=== PATIENT | male | born 1950 | race Caucasian/White ===

== ENCOUNTER 2017-02-02 11:47 | Outpatient (CLI) ==
[2016-02-04 08:40] VITALS: BMI 30.4
[2017-02-02 12:55] LABS: BASOPHILS % (AUTO) 0.6 % (0.0-3.0); EOSINOPHILS # (AUTO) 0.2 K/ul (0.0-0.7); EOSINOPHILS % (AUTO) 2.8 % (0.0-7.0); HEMATOCRIT 48.8 % (42.0-52.0); HEMOGLOBIN 16.5 g/dl (14.0-18.0); IMMATURE GRANULOCYTE % (AUTO) 0.4 % (0.0-5.0); LYMPHOCYTES # (AUTO) 2.1 K/uL (0.60-3.4); LYMPHOCYTES % (AUTO) 31.7 (10.0-50.0); MEAN CORPUSCULAR HEMOGLOBIN 28.9 pg (27.0-31.0); MEAN CORPUSCULAR HGB CONC 33.8 (31.8-35.4); MEAN CORPUSCULAR VOLUME 85.5 fl (80.0-94.0); MONOCYTES # (AUTO) 0.7 K/uL (0.4-2.0); MONOCYTES % (AUTO) 10.4 (0-10); NEUTROPHILS # (AUTO) 3.6 K/ul (2.0-6.9); NEUTROPHILS % (AUTO) 54.1; PLATELET COUNT 184 10^3/uL (140-440); RED BLOOD COUNT 5.71 10^6/ul (4.70-6.10); WHITE BLOOD COUNT 6.71 K/ul (4.2-10.2)
[2017-02-02 13:27] LABS: ALBUMIN 3.6 g/dL (3.4-5.0); ALBUMIN/GLOBULIN RATIO 0.9; ANION GAP 14.3; BILIRUBIN,TOTAL 0.38 mg/dL (0.00-1.20); BUN/CREATININE RATIO 14.89; CHOL/HDL RATIO 4.6 (4.5-6.4); CREATININE 0.94 mg/dL (0.60-1.10); POTASSIUM 4.3 mmol/L (3.5-5.1); TOTAL PROTEIN 7.6 g/dL (5.8-8.1)
== END 2017-02-02 11:48 | disposition home or self-care (01) ==
LOC: LAB 11:47
PROVIDERS: ATTEND Nurse Practitioner Family
DX: E11.9 Type 2 diabetes mellitus without complications (principal); I10 Essential (primary) hypertension; E78.5 Hyperlipidemia, unspecified
CPT/HCPCS: 36415; 80053; 80061; 83036; 85025

== ENCOUNTER 2017-05-13 09:11 | Outpatient (CLI) ==
[2016-02-04 08:40] VITALS: BMI 30.4
[2017-05-13 14:21] LABS: ALBUMIN 3.8 g/dL (3.4-5.0); ANION GAP 13.3; BILIRUBIN,TOTAL 0.47 mg/dL (0.00-1.20); BUN/CREATININE RATIO 17.02; CALCIUM 9.4 mg/dL (8.2-10.2); CHOL/HDL RATIO 4.6 (4.5-6.4); CREATININE 0.94 mg/dL (0.60-1.10); POTASSIUM 4.3 mmol/L (3.5-5.1); TOTAL PROTEIN 7.6 g/dL (5.8-8.1)
== END 2017-05-13 09:12 | disposition home or self-care (01) ==
LOC: LAB 09:11
PROVIDERS: ATTEND Nurse Practitioner Family
DX: E11.9 Type 2 diabetes mellitus without complications (principal); I10 Essential (primary) hypertension; E78.5 Hyperlipidemia, unspecified; Z12.5 Encounter for screening for malignant neoplasm of prostate
CPT/HCPCS: 36415; 80053; 80061; 83036; 84443

== ENCOUNTER 2017-05-26 14:08 | Emergency (ER) ==
[2017-05-26 14:14] VITALS: BP 151/75; TEMP 97.9; BMI 30.2
--- NOTE | 2017-05-26 14:19 | ED.PDOC ---
General ED Provider: Dr. GENIA VELEZ JR Chief Complaint: Back Pain Stated Complaint: onset wednesday--heating pad with relief--denies injury --pain rt flank-no dysuria[ End ]97.9 72 20 93 151/75 10 no benefit Lortab 7.5 Time Seen by Physician: 14:17 Mode of Arrival: Walk-In Information Source: Patient Exam Limitations: No limitations Primary Care Provider: SURENDRA WELSH Nursing and Triage Documentation Reviewed and Agree: No Review of Systems - Review Of Systems Constitutional: Reports: No symptoms Eyes: Reports: No symptoms Ears, Nose, Mouth, Throat: Reports: No symptoms Respiratory: Reports: No symptoms Cardiac: Reports: No symptoms GI: Reports: No symptoms : Reports: Flank pain Musculoskeletal: Reports: Back pain Skin: Reports: No symptoms Neurological: Reports: No symptoms Endocrine: Reports: No symptoms Hematologic/Lymphatic: Reports: No symptoms All Other Systems: Other Past Medical History - Past Medical History Endocrine: Reports: DM 2, Dyslipidemia Cardiovascular: Reports: Hypertension Respiratory: Reports: COPD Hematological: Reports: None Gastrointestinal: Reports: None Genitourinary: Reports: None Neuro/Psych: Reports: None Musculoskeletal: Reports: Arthritis Cancer: Reports: None - Surgical History General Surgical History: Reports: Other (eyes-lasic) - Family History Family History: Reports: Unknown - Social History Smoking Status: Current every day smoker, Heavy tobacco smoker Hx Substance Use: No Alcohol Screening: None Physical Exam - Physical Exam Appearance: Well-appearing Pain Distress: Moderate Eyes: RAEANN, EOMI, Conjunctiva clear ENT: Ears normal, Nose normal, Oropharynx normal Neck: Supple Respiratory: Airway patent, Breath sounds clear, Breath sounds equal, Respirations nonlabored Cardiovascular: RRR, Pulses normal, No rub, No murmur GI/: Soft, Nontender, No masses, Bowel sounds normal, No Organomegaly Musculoskeletal: Normal strength, ROM intact, No edema, No calf tenderness ( right flank pain) Skin: Warm, Dry, Normal color Neurological: Sensation intact, Motor intact, Reflexes intact, Cranial nerves intact, Alert, Oriented Psychiatric: Affect appropriate, Mood appropriate Re-Evaluation - Re-Evaluation Time of Re-Evaluation: 15:27 Status: Improved (pain resolved) Critical Care Note - Critical Care Note Total Time (mins): 0 Course - Course Hematology/Chemistry: 05/26/17 14:44 05/26/17 14:44 Orders, Labs, Meds: Lab Review 05/26/17 05/26/17 14:25 14:44 WBC 8.02 RBC 5.54 Hgb 16.4 Hct 47.7 MCV 86.1 MCH 29.6 MCHC 34.4 RDW Coeff of Oren 13.6 Plt Count 187 Immature Gran % (Auto) 0.4 Neut % (Auto) 68.2 Lymph % (Auto) 19.2 [place] % (Auto) 10.0 Eos % (Auto) 1.7 Baso % (Auto) 0.5 Immature Gran # (Auto) 0.0 Neut # 5.5 Lymph # 1.5 [place] # 0.8 Eos # 0.1 Baso # 0.0 Sodium 139 Potassium 4.0 Chloride 106 Carbon Dioxide 20 L Anion Gap 17.0 BUN 18 Creatinine 0.86 Estimated GFR (MDRD) 89.00 BUN/Creatinine Ratio 20.93 Glucose 144 H Calcium 9.5 Total Bilirubin 0.32 AST 41 H ALT 77 Alkaline Phosphatase 98 Total Protein 7.4 Albumin 3.7 Globulin 3.7 Albumin/Globulin Ratio 1.00 Urine Color Yellow Urine Clarity Clear Urine pH 5.0 Ur Specific [place] 1.010 Urine Protein Negative Urine Glucose (UA) 2+ Urine Ketones Negative Urine Blood Negative Urine Nitrite Negative Urine Bilirubin Negative Urine Urobilinogen 0.2 Ur Leukocyte Esterase Negative Orders Category Date Time Status CBC W/ AUTO DIFF Stat LAB 05/26/17 14:44 Completed COMPREHENSIVE METABOLIC PANEL Stat LAB 05/26/17 14:44 Completed URINALYSIS C & S IF INDICATED Stat LAB 05/26/17 14:25 Completed Ketorolac Tromethamine [Toradol] MEDS 05/26/17 14:33 Discontinued 60 mg IM ONCE STA Promethazine HCl [Phenergan 25 mg/ml Vial] MEDS 05/26/17 14:33 Discontinued 25 mg IM ONCE STA Medications Discontinued Medications Generic Name Dose Route Start Last Admin Trade Name Freq PRN Reason Stop Dose Admin Ketorolac Tromethamine 60 mg 05/26/17 14:33 05/26/17 14:47 Toradol IM 05/26/17 14:34 60 mg ONCE STA Administration Promethazine HCl 25 mg 05/26/17 14:33 05/26/17 14:48 Phenergan 25 Mg/Ml Vial IM 05/26/17 14:34 25 mg ONCE STA Administration Vital Signs: Temp Pulse Resp BP Pulse Ox 05/26/17 14:08 97.9 F 72 20 151/75 H 93 L Departure - Departure Time of Disposition: 15:27 Disposition: HOME SELF-CARE Discharge Problem: Strain of mid-back Qualifiers: Encounter type: initial encounter Qualifier Code: (S29.012A) Strain of muscle and tendon of back wall of thorax, initial encounter Instructions: Low Back Strain (ED), Lower Back Exercises (ED), Core Strengthening Exercises (ED) Condition: Good Pt referred to PMD for follow-up: Yes Additional Instructions: light exercise daily for one tot two weeks then may do core exercises toradol or aleve for pain (do not take together) recheck PMD one week Allergies/Adverse Reactions: Allergies meperidine HCl [From Demerol] Allergy (Mild, Verified 05/26/17 14:15) Unknown Hallucinations Home Medications: Ambulatory Orders Aspirin 81 mg PO DAILY 05/17/14
[2017-05-26] MEDS ORDERED: PHENERGAN 25 MG/ML VIAL IM STA (14:33)
[2017-05-26] MEDS ORDERED: TORADOL IM STA (14:33)
[2017-05-26 14:46] LABS: BILIRUBIN,URINE Negative (NEGATIVE); KETONES,URINE Negative (NEGATIVE); LEUKOCYTE ESTERASE ,URINE Negative (NEGATIVE); NITRITE,URINE Negative (NEGATIVE); PROTEIN,URINE Negative (NEGATIVE); URINE, BLOOD Negative (NEGATIVE)
[2017-05-26 14:51] LABS: BASOPHILS % (AUTO) 0.5 % (0.0-3.0); EOSINOPHILS # (AUTO) 0.1 K/ul (0.0-0.7); EOSINOPHILS % (AUTO) 1.7 % (0.0-7.0); HEMATOCRIT 47.7 % (42.0-52.0); HEMOGLOBIN 16.4 g/dl (14.0-18.0); IMMATURE GRANULOCYTE % (AUTO) 0.4 % (0.0-5.0); LYMPHOCYTES # (AUTO) 1.5 K/uL (0.60-3.4); LYMPHOCYTES % (AUTO) 19.2 (10.0-50.0); MEAN CORPUSCULAR HEMOGLOBIN 29.6 pg (27.0-31.0); MEAN CORPUSCULAR HGB CONC 34.4 (31.8-35.4); MEAN CORPUSCULAR VOLUME 86.1 fl (80.0-94.0); MONOCYTES # (AUTO) 0.8 K/uL (0.4-2.0); NEUTROPHILS # (AUTO) 5.5 K/ul (2.0-6.9); NEUTROPHILS % (AUTO) 68.2; PLATELET COUNT 187 10^3/uL (140-440); RED BLOOD COUNT 5.54 10^6/ul (4.70-6.10); WHITE BLOOD COUNT 8.02 K/ul (4.2-10.2)
[2017-05-26 14:51] LABS: ADD URINE MICROSCOPIC NO
[2017-05-26 15:12] LABS: ALBUMIN 3.7 g/dL (3.4-5.0); BILIRUBIN,TOTAL 0.32 mg/dL (0.00-1.20); BUN/CREATININE RATIO 20.93; CALCIUM 9.5 mg/dL (8.2-10.2); CREATININE 0.86 mg/dL (0.60-1.10); TOTAL PROTEIN 7.4 g/dL (5.8-8.1)
== END 2017-05-26 15:47 | disposition home or self-care (01) ==
LOC: ED 14:08
DX: S29.012A Strain of muscle and tendon of back wall of thorax, initial encounter (principal); F17.210 Nicotine dependence, cigarettes, uncomplicated
CPT/HCPCS: 36415; 80053; 81001; 85025; 96372; 99282

== ENCOUNTER 2017-08-25 12:42 | Outpatient (CLI) ==
[2017-08-25 13:07] LABS: BASOPHILS # (AUTO) 0.1 K/uL (0-0.2); BASOPHILS % (AUTO) 0.7 % (0.0-3.0); EOSINOPHILS # (AUTO) 0.1 K/ul (0.0-0.7); EOSINOPHILS % (AUTO) 1.8 % (0.0-7.0); HEMATOCRIT 49.8 % (42.0-52.0); HEMOGLOBIN 17.1 g/dl (14.0-18.0); IMMATURE GRANULOCYTE % (AUTO) 0.4 % (0.0-5.0); LYMPHOCYTES # (AUTO) 1.8 K/uL (0.60-3.4); LYMPHOCYTES % (AUTO) 24.7 (10.0-50.0); MEAN CORPUSCULAR HEMOGLOBIN 29.5 pg (27.0-31.0); MEAN CORPUSCULAR HGB CONC 34.3 (31.8-35.4); MONOCYTES # (AUTO) 0.7 K/uL (0.4-2.0); MONOCYTES % (AUTO) 9.3 (0-10); NEUTROPHILS # (AUTO) 4.6 K/ul (2.0-6.9); NEUTROPHILS % (AUTO) 63.1; PLATELET COUNT 195 10^3/uL (140-440); RED BLOOD COUNT 5.79 10^6/ul (4.70-6.10); WHITE BLOOD COUNT 7.33 K/ul (4.2-10.2)
[2017-08-25 13:18] LABS: ALBUMIN 3.8 g/dL (3.4-5.0); ALBUMIN/GLOBULIN RATIO 0.93; ANION GAP 14.1; BILIRUBIN,TOTAL 0.6 mg/dL (0.00-1.20); BUN/CREATININE RATIO 19.04; CALCIUM 9.8 mg/dL (8.2-10.2); CHOL/HDL RATIO 5.2 (4.5-6.4); CREATININE 0.84 mg/dL (0.60-1.10); POTASSIUM 4.1 mmol/L (3.5-5.1); TOTAL PROTEIN 7.9 g/dL (5.8-8.1)
== END 2017-08-25 12:43 | disposition home or self-care (01) ==
LOC: LAB 12:42
PROVIDERS: ATTEND Nurse Practitioner Family
DX: E78.5 Hyperlipidemia, unspecified (principal); E11.9 Type 2 diabetes mellitus without complications; I10 Essential (primary) hypertension; J44.9 Chronic obstructive pulmonary disease, unspecified; Z72.0 Tobacco use; Z12.5 Encounter for screening for malignant neoplasm of prostate; Z79.899 Other long term (current) drug therapy
CPT/HCPCS: 36415; 80053; 80061; 83036; 85025

== ENCOUNTER 2017-09-13 12:28 | Emergency (ER) ==
[2017-09-13 12:32] VITALS: BP 145/73; TEMP 97.1; BMI 30.1
[2017-09-13 13:04] LABS: BASOPHILS % (AUTO) 0.4 % (0.0-3.0); EOSINOPHILS # (AUTO) 0.1 K/ul (0.0-0.7); EOSINOPHILS % (AUTO) 1.4 % (0.0-7.0); HEMATOCRIT 46.9 % (42.0-52.0); HEMOGLOBIN 16.4 g/dl (14.0-18.0); IMMATURE GRANULOCYTE % (AUTO) 0.4 % (0.0-5.0); LYMPHOCYTES # (AUTO) 1.4 K/uL (0.60-3.4); LYMPHOCYTES % (AUTO) 14.8 (10.0-50.0); MEAN CORPUSCULAR HEMOGLOBIN 29.8 pg (27.0-31.0); MEAN CORPUSCULAR VOLUME 85.3 fl (80.0-94.0); MONOCYTES # (AUTO) 0.9 K/uL (0.4-2.0); MONOCYTES % (AUTO) 9.5 (0-10); NEUTROPHILS # (AUTO) 7.1 K/ul (2.0-6.9); NEUTROPHILS % (AUTO) 73.5; PLATELET COUNT 174 10^3/uL (140-440); WHITE BLOOD COUNT 9.68 K/ul (4.2-10.2)
[2017-09-13 13:24] LABS: BILIRUBIN,URINE Negative (NEGATIVE); KETONES,URINE Negative (NEGATIVE); LEUKOCYTE ESTERASE ,URINE Negative (NEGATIVE); NITRITE,URINE Negative (NEGATIVE); PH,URINE 5.5 (5-9); PROTEIN,URINE Negative (NEGATIVE); URINE, BLOOD Negative (NEGATIVE)
[2017-09-13 13:25] LABS: ALBUMIN 3.6 g/dL (3.4-5.0); ALBUMIN/GLOBULIN RATIO 1.06; ANION GAP 14.9; BILIRUBIN,TOTAL 0.36 mg/dL (0.00-1.20); BUN/CREATININE RATIO 21.95; CALCIUM 9.4 mg/dL (8.2-10.2); CREATININE 0.82 mg/dL (0.60-1.10); POTASSIUM 3.9 mmol/L (3.5-5.1); TROPONIN I 0.014 ng/ml (0.0000-0.4000)
[2017-09-13 13:25] LABS: ADD URINE MICROSCOPIC NO
--- NOTE | 2017-09-13 13:53 | CT ---
EXAM: CT abdomen pelvis without contrast History: Abdominal pain. Comparison: Chest CT 09/13/2017 Technique: Multiplanar CT images through the abdomen pelvis were obtained without the administration of IV contrast Findings: Lung bases are free of consolidation. No acute osseous abnormalities. Degenerative change s of the lumbar spine. No discrete gallstones identified by CT. Calcified granulomas within the spleen. No focal liver les ions. No peripancreatic inflammation. Atherosclerotic vascular calcifications. Adrenal glands are unremarkable. 2.8 cm indeterminate exophytic mass within the left kidney and a few small indetermina te exophytic lesions within the right kidney. Nonspecific bilateral perinephric stranding. No dilated loops of bowel. The appendix is normal. No bladder wall thickening. Prostate is not significantly enlarged. No perirectal inflammation. No free air and no ascites. Colonic diverticulosis. Minimal stranding adjacent to the sigmoid colon. Impression: 1. Mild sigmoid diverticulitis. 2. Indeterminate bilateral renal masses. Recommend further evaluation with MR renal mass protocol. 3. Nonspecific bilateral perinephric stranding. Correlate with urinalysis.
--- NOTE | 2017-09-13 14:05 | CT ---
EXAM: CT of the chest without contrast History: Cough. Comparison: CT abdomen pelvis 09/13/2017 Technique: Multiplanar CT images through the thorax were obtained without the administration of IV c ontrast Findings: Heart size is normal. Coronary calcifications. Trace pericardial fluid. No axillary monik nopathy. 3 cm pretracheal mediastinal lymph node. There is right hilar fullness with probable lymph adenopathy. Right perihilar micronodules. No pleural fluid and no pneumothorax. For details in the upper abdomen, please see dedicated CT abdomen pelvis done on the same day. No ac cantwell osseous abnormalities. Impression: 1. Mediastinal and right hilar lymphadenopathy suspicious for malignancy. Further evaluation recomme nded. 2. Right perihilar micronodules could be infectious/inflammatory or metastatic. 3. Coronary artery disease.
--- NOTE | 2017-09-13 14:36 | ED.PDOC ---
General ED Provider: Dr. CHANELLE RHOADES Chief Complaint: Chest Wall Injury/Pain Stated Complaint: ABDOMINAL PAIN Time Seen by Physician: 12:30 Mode of Arrival: Walk-In Information Source: Patient Exam Limitations: No limitations [facility] Nursing and Triage Documentation Reviewed and Agree: Yes GI Complaint Exam - Abdominal Pain Complaint/Exam Onset: Gradual Duration: 12;30 PM Symptoms Are: Still present Timing: Intermittent Initial Severity: Moderate Location of Pain: LUQ, LLQ Character: Reports: Aching Aggravating: Reports: None Alleviating: Reports: None Associated Signs and Symptoms: Denies: Diaphoresis, Fever, Cough, Chest pain, Dizziness, Back pain, Constipation, Blood in stool, Dysuria, Urinary frequency, Decreased urine output, Decreased appetite, Discharge, Nausea, Vomiting, Diarrhea, Decreased activity Related History: Reports: Similar episode AAA Risk Factors: Reports: Smoking, Hypertension Cardiac Risk Factors: Reports: Smoking Testicular Torsion Risk Factors: Reports: None Surgical Obstruction Risk Factors: Reports: None Related Surgical History: Reports: None Abdominal Findings: Present: None Differential Diagnoses: Appendicitis, Bowel Obstruction, Constipation, Renal Colic, Ureteral Stone Review of Systems - Review Of Systems Constitutional: Reports: No symptoms Eyes: Reports: No symptoms Ears, Nose, Mouth, Throat: Reports: No symptoms Respiratory: Reports: No symptoms Cardiac: Reports: No symptoms GI: Reports: Abdominal pain : Reports: No symptoms Musculoskeletal: Reports: No symptoms Skin: Reports: No symptoms Neurological: Reports: No symptoms Endocrine: Reports: No symptoms Hematologic/Lymphatic: Reports: No symptoms All Other Systems: Reviewed and Negative Past Medical History - Past Medical History Previously Healthy: Yes Endocrine: Reports: DM 2, Dyslipidemia Cardiovascular: Reports: Hypertension Respiratory: Reports: COPD Hematological: Reports: None Gastrointestinal: Reports: None Genitourinary: Reports: None Neuro/Psych: Reports: None Musculoskeletal: Reports: Arthritis Cancer: Reports: None - Surgical History General Surgical History: Reports: Other (eyes-lasic) - Family History Family History: Reports: Unknown - Social History Smoking Status: Current every day smoker, Heavy tobacco smoker Hx Substance Use: No Alcohol Screening: None Physical Exam - Physical Exam Appearance: Well-appearing, No pain distress, Well-nourished Eyes: RAEANN, EOMI, Conjunctiva clear ENT: Ears normal, Nose normal, Oropharynx normal Respiratory: Airway patent, Breath sounds clear, Breath sounds equal, Respirations nonlabored Cardiovascular: RRR, Pulses normal, No rub, No murmur GI/: Soft, Nontender, No masses, Bowel sounds normal, No Organomegaly Musculoskeletal: Normal strength, ROM intact, No edema, No calf tenderness Skin: Warm, Dry, Normal color Neurological: Sensation intact, Motor intact, Reflexes intact, Cranial nerves intact, Alert, Oriented Psychiatric: Affect appropriate, Mood appropriate Interpretation - Radiology Interpretation Radiology Interpretation By: Radiologist Radiology Results: Positive (RENAL MASS WITH METS) - Geophysics Scientist Rate: Normal Rhythm: Sinus Ectopy: None - EKG Interpretation Rate: Normal Rhythm: Sinus Ectopy: None [place]: NL ST Segment: Normal Critical Care Note - Critical Care Note Total Time (mins): 0 Course - Course Hematology/Chemistry: 09/13/17 13:00 09/13/17 13:00 Orders, Labs, Meds: Lab Review 09/13/17 09/13/17 09/13/17 13:00 13:00 13:16 WBC 9.68 RBC 5.50 Hgb 16.4 Hct 46.9 MCV 85.3 MCH 29.8 MCHC 35.0 RDW Coeff of Oren 13.3 Plt Count 174 Immature Gran % (Auto) 0.4 Neut % (Auto) 73.5 Lymph % (Auto) 14.8 [place] % (Auto) 9.5 Eos % (Auto) 1.4 Baso % (Auto) 0.4 Immature Gran # (Auto) 0.0 Neut # 7.1 H Lymph # 1.4 [place] # 0.9 Eos # 0.1 Baso # 0.0 Sodium 141 Potassium 3.9 Chloride 108 H Carbon Dioxide 22 L Anion Gap 14.9 BUN 18 Creatinine 0.82 Estimated GFR (MDRD) 94.00 BUN/Creatinine Ratio 21.95 Glucose 124 H Calcium 9.4 Total Bilirubin 0.36 AST 16 ALT 14 Alkaline Phosphatase 71 Total Creatine Kinase 90 Troponin I 0.0140 Total Protein 7.0 Albumin 3.6 Globulin 3.4 Albumin/Globulin Ratio 1.06 Amylase 94 Lipase 57 Urine Color Yellow Urine Clarity Clear Urine pH 5.5 Ur Specific [place] 1.020 Urine Protein Negative Urine Glucose (UA) 2+ Urine Ketones Negative Urine Blood Negative Urine Nitrite Negative Urine Bilirubin Negative Urine Urobilinogen 1.0 Ur Leukocyte Esterase Negative Orders Category Date Time Status EKG-(ED ONLY) Stat CARDIO 09/13/17 12:56 Ordered AMYLASE Stat LAB 09/13/17 12:54 Ordered CBC W/ AUTO DIFF Stat LAB 09/13/17 12:54 Ordered COMPREHENSIVE METABOLIC PANEL Stat LAB 09/13/17 12:54 Ordered CREATINE KINASE Stat LAB 09/13/17 12:54 Ordered LIPASE Stat LAB 09/13/17 12:54 Ordered TROPONIN I Stat LAB 09/13/17 12:54 Ordered UA [URINALYSIS C & S IF INDICATED] Stat LAB 09/13/17 12:[address] ABDOMEN/PELVIS WO CONTRAST Stat RADS 09/13/17 12:[address] CHEST W/O CONTRAST Stat RADS 09/13/17 12:55 Ordered Vital Signs: Temp Pulse Resp BP Pulse Ox 09/13/17 12:29 97.1 F L 83 20 145/73 H 92 L Departure - Departure Time of Disposition: 14:36 (CANCER DISCUSSED WITH LALITA AT BEDSIDE IN DETAIL) Disposition: HOME SELF-CARE Discharge Problem: Abdominal pain Qualifiers: Abdominal location: generalized Qualified Code(s): R10.84 - Generalized abdominal pain Instructions: Abdominal Pain (ED) Condition: Good Pt referred to PMD for follow-up: Yes Additional Instructions: Please call your Family Physician as soon as possible to schedule a follow-up appointment.MUST SEE CLINIC ABOUT POSSIBLE CANCER Allergies/Adverse Reactions: Allergies meperidine HCl [From Demerol] Allergy (Mild, Verified 09/13/17 12:32) Unknown Hallucinations Home Medications: Ambulatory Orders Aspirin 81 mg PO DAILY 05/17/14 Verapamil HCl [Verapamil ER] 180 mg PO BID 09/13/17
== END 2017-09-13 14:40 | disposition home or self-care (01) ==
LOC: ED 12:28
DX: R10.84 Generalized abdominal pain (principal); R07.89 Other chest pain; I10 Essential (primary) hypertension; F17.210 Nicotine dependence, cigarettes, uncomplicated; E11.9 Type 2 diabetes mellitus without complications; E78.5 Hyperlipidemia, unspecified
CPT/HCPCS: 36415; 80053; 81001; 82150; 82550; 83690; 84484; 85025; 93005; 93010; 99283

== ENCOUNTER 2017-09-14 09:06 | Outpatient (CLI) ==
[2017-09-13 12:32] VITALS: BMI 30.1
--- NOTE | 2017-09-14 12:51 | MRI ---
EXAM: MRI of the abdomen with without contrast History: Renal masses. Comparison: CT abdomen and pelvis 09/13/2017 Technique: Multiplanar, multisequence MRI images through the abdomen were obtained with and without the administration of IV contrast. Findings: Lung bases are free of consolidation. Bone marrow signal appears appropriate. No gallsto francie identified. No focal liver or splenic lesions. Adrenal glands are unremarkable. No peripancrea tic inflammation. No abnormal enhancement of the pancreas. 2.8 cm x 2.7 cm mass within the superior pole of the left kidney demonstrating some areas of increased signal intensity on T1 but no definite internal contrast enhancement. There is a question of a few thin septations. Small benign right re nal cysts. No pathologically enlarged lymph nodes. No ascites. No pancreatic masses. Adrenal glan ds are unremarkable. No ascites. Impression: Mass within the superior pole of the left kidney is most compatible with a hemorrhagic o r proteinaceous cyst. A hypovascular renal cell carcinoma is considered less likely but not excluded . Recommend followup study in 6 months to document stability.
== END 2017-09-14 09:07 | disposition home or self-care (01) ==
LOC: RAD 09:06
PROVIDERS: ATTEND Emergency Medicine
DX: N28.89 Other specified disorders of kidney and ureter (principal)

== ENCOUNTER 2017-10-08 12:08 | Inpatient (IN) ==
[2017-10-08] MEDS ORDERED: ROCEPHIN 1 GM in SODIUM CHLORIDE 50 ML IV ONE (12:34)
[2017-10-08] MEDS ORDERED: PROAIR HFA IH PRN (12:39)
[2017-10-08 12:46] VITALS: BMI 29.1
[2017-10-08 13:08] LABS: BASOPHILS # (AUTO) 0.1 K/uL (0-0.2); BASOPHILS % (AUTO) 0.8 % (0.0-3.0); EOSINOPHILS # (AUTO) 0.1 K/ul (0.0-0.7); EOSINOPHILS % (AUTO) 1.1 % (0.0-7.0); HEMATOCRIT 47.7 % (42.0-52.0); HEMOGLOBIN 16.8 g/dl (14.0-18.0); IMMATURE GRANULOCYTE % (AUTO) 0.4 % (0.0-5.0); LYMPHOCYTES # (AUTO) 1.7 K/uL (0.60-3.4); LYMPHOCYTES % (AUTO) 17.9 (10.0-50.0); MEAN CORPUSCULAR HEMOGLOBIN 29.9 pg (27.0-31.0); MEAN CORPUSCULAR HGB CONC 35.2 (31.8-35.4); MONOCYTES # (AUTO) 0.9 K/uL (0.4-2.0); MONOCYTES % (AUTO) 9.9 (0-10); NEUTROPHILS # (AUTO) 6.5 K/ul (2.0-6.9); NEUTROPHILS % (AUTO) 69.9; PLATELET COUNT 189 10^3/uL (140-440); RED BLOOD COUNT 5.61 10^6/ul (4.70-6.10); WHITE BLOOD COUNT 9.25 K/ul (4.2-10.2)
[2017-10-08 13:14] LABS: ALBUMIN 3.5 g/dL (3.4-5.0); ALBUMIN/GLOBULIN RATIO 1.03; ANION GAP 13.9; BILIRUBIN,TOTAL 0.31 mg/dL (0.00-1.20); BUN/CREATININE RATIO 15.73; CALCIUM 9.4 mg/dL (8.2-10.2); CREATININE 0.89 mg/dL (0.60-1.10); POTASSIUM 3.9 mmol/L (3.5-5.1); TOTAL PROTEIN 6.9 g/dL (5.8-8.1)
[2017-10-08] MEDS: SODIUM CHLORIDE 1,000 ML IV SCH (14:06)
--- NOTE | 2017-10-08 14:16 | CT ---
EXAM: CT abdomen pelvis without contrast HISTORY: Abdominal pain, diverticulitis COMPARISON: 09/13/2017 TECHNIQUE: CT abdomen pelvis performed without intravenous contrast. Coronal and sagittal reformatt ed images obtained. FINDINGS: Granulomatous calcification lower chest. No free air. No acute abnormalities of the bone s. Degenerative change in the spine. Heart normal in size. Trace pericardial fluid anteriorly. Ev aluation organ parenchyma limited without contrast. Liver unremarkable. Gallbladder unremarkable. Pancreas unremarkable. Spleen unremarkable except before. Imaged. Granulomatous calcification in t he spleen. Spleen otherwise unremarkable. Adrenals unremarkable. Bilateral renal lesions, characte rized on recent MRI. No hydronephrosis or nephrolithiasis. Stable nonspecific perinephric stranding. Aorta normal in caliber. Moderate atherosclerosis. No lymphadenopathy or ascites. Bladder unremar kable. Prostate moderately enlarged. Small hiatal hernia. No dilated loops small bowel. Appendix appears normal. Colonic diverticulosis. . Minimal linear stranding changes near the sigmoid colon m ay represent minimal diverticulitis or chronic scarring. Mild to moderate fecal retention. No focal drainable collection. IMPRESSION: 1. Colonic diverticulosis. Minimal linear stranding changes near the sigmoid colon may represent min imal diverticulitis or chronic scarring. 2. Stable nonspecific perinephric stranding may represent senescent change. Findings may correlate w ith urinalysis. 3. Moderately enlarged prostate. 4. Renal lesions. Please see MRI 09/13/2070. 5. Moderately enlarged prostate. 6. Mild to moderate fecal retention. 7. Small hiatal hernia.
[2017-10-08 14:39] LABS: BILIRUBIN,URINE Negative (NEGATIVE); KETONES,URINE Negative (NEGATIVE); LEUKOCYTE ESTERASE ,URINE Negative (NEGATIVE); NITRITE,URINE Negative (NEGATIVE); PROTEIN,URINE Negative (NEGATIVE); URINE, BLOOD Negative (NEGATIVE)
[2017-10-08 14:40] LABS: ADD URINE MICROSCOPIC NO
[2017-10-08] MEDS ORDERED: FLOMAX PO SCH (16:11)
[2017-10-08] MEDS: FLOMAX PO SCH (16:57)
[2017-10-08] MEDS: CALAN SR PO SCH (20:23)
[2017-10-08 20:39] LABS: TROPONIN I 0.024 ng/ml (0.0000-0.4000)
[2017-10-08 20:46] LABS: CREATINE KINASE MB 2.9 ng/ml (0.0-3.6)
[2017-10-09 03:21] LABS: BASOPHILS % (AUTO) 0.6 % (0.0-3.0); EOSINOPHILS # (AUTO) 0.1 K/ul (0.0-0.7); EOSINOPHILS % (AUTO) 2.1 % (0.0-7.0); HEMATOCRIT 45.4 % (42.0-52.0); HEMOGLOBIN 15.6 g/dl (14.0-18.0); IMMATURE GRANULOCYTE % (AUTO) 0.3 % (0.0-5.0); LYMPHOCYTES # (AUTO) 1.4 K/uL (0.60-3.4); LYMPHOCYTES % (AUTO) 21.9 (10.0-50.0); MEAN CORPUSCULAR HEMOGLOBIN 29.3 pg (27.0-31.0); MEAN CORPUSCULAR HGB CONC 34.4 (31.8-35.4); MEAN CORPUSCULAR VOLUME 85.2 fl (80.0-94.0); MONOCYTES # (AUTO) 0.6 K/uL (0.4-2.0); MONOCYTES % (AUTO) 10.2 (0-10); NEUTROPHILS # (AUTO) 4.1 K/ul (2.0-6.9); NEUTROPHILS % (AUTO) 64.9; PLATELET COUNT 171 10^3/uL (140-440); RED BLOOD COUNT 5.33 10^6/ul (4.70-6.10)
[2017-10-09 03:40] LABS: ALBUMIN 3.2 g/dL (3.4-5.0); ALBUMIN/GLOBULIN RATIO 0.94; ANION GAP 11.9; BILIRUBIN,TOTAL 0.3 mg/dL (0.00-1.20); BUN/CREATININE RATIO 14.81; CALCIUM 8.9 mg/dL (8.2-10.2); CREATININE 0.81 mg/dL (0.60-1.10); POTASSIUM 3.9 mmol/L (3.5-5.1); TOTAL PROTEIN 6.6 g/dL (5.8-8.1)
[2017-10-09 03:59] LABS: TROPONIN I 0.02 ng/ml (0.0000-0.4000)
[2017-10-09] MEDS: ASPIRIN CHEWABLE PO SCH (08:22)
[2017-10-09] MEDS: FLOMAX PO SCH (08:22)
[2017-10-09] MEDS: LIPITOR PO SCH (08:22)
[2017-10-09] MEDS: CALAN SR PO SCH ×2 (08:22→20:01)
[2017-10-09] MEDS: NON-FORMULARY MEDICATION (Fluticasone/Vilanterol [Breo Ellipta 100-25 Mcg Inh] 1 PUFF) IH SCH (09:59)
[2017-10-09] MEDS: SODIUM CHLORIDE 1,000 ML IV SCH (13:29)
[2017-10-10 05:26] LABS: BASOPHILS # (AUTO) 0.1 K/uL (0-0.2); BASOPHILS % (AUTO) 0.8 % (0.0-3.0); EOSINOPHILS # (AUTO) 0.2 K/ul (0.0-0.7); EOSINOPHILS % (AUTO) 2.7 % (0.0-7.0); HEMATOCRIT 46.2 % (42.0-52.0); HEMOGLOBIN 16.2 g/dl (14.0-18.0); IMMATURE GRANULOCYTE % (AUTO) 0.2 % (0.0-5.0); LYMPHOCYTES # (AUTO) 1.6 K/uL (0.60-3.4); MEAN CORPUSCULAR HEMOGLOBIN 29.7 pg (27.0-31.0); MEAN CORPUSCULAR HGB CONC 35.1 (31.8-35.4); MEAN CORPUSCULAR VOLUME 84.8 fl (80.0-94.0); MONOCYTES # (AUTO) 0.7 K/uL (0.4-2.0); MONOCYTES % (AUTO) 11.2 (0-10); NEUTROPHILS # (AUTO) 3.6 K/ul (2.0-6.9); NEUTROPHILS % (AUTO) 59.1; PLATELET COUNT 178 10^3/uL (140-440); RED BLOOD COUNT 5.45 10^6/ul (4.70-6.10)
[2017-10-10 05:45] LABS: ALBUMIN 3.3 g/dL (3.4-5.0); ALBUMIN/GLOBULIN RATIO 0.89; ANION GAP 11.1; BILIRUBIN,TOTAL 0.38 mg/dL (0.00-1.20); BUN/CREATININE RATIO 12.65; CREATININE 0.79 mg/dL (0.60-1.10); POTASSIUM 4.1 mmol/L (3.5-5.1)
[2017-10-10] MEDS: CALAN SR PO SCH ×2 (08:27→20:09)
[2017-10-10] MEDS: ASPIRIN CHEWABLE PO SCH (08:27)
[2017-10-10] MEDS: NON-FORMULARY MEDICATION (Fluticasone/Vilanterol [Breo Ellipta 100-25 Mcg Inh] 1 PUFF) IH SCH (08:27)
[2017-10-10] MEDS: LIPITOR PO SCH (08:28)
[2017-10-10] MEDS: FLOMAX PO SCH (08:28)
[2017-10-10] MEDS: SODIUM CHLORIDE 1,000 ML IV SCH (13:44)
[2017-10-11 09:38] VITALS: BP 159/78; TEMP 97.5
[2017-10-11] MEDS: FLOMAX PO SCH (09:58)
[2017-10-11] MEDS: LIPITOR PO SCH (09:58)
[2017-10-11] MEDS: ASPIRIN CHEWABLE PO SCH (09:58)
[2017-10-11] MEDS: CALAN SR PO SCH (09:58)
[2017-10-11] MEDS: NON-FORMULARY MEDICATION (Fluticasone/Vilanterol [Breo Ellipta 100-25 Mcg Inh] 1 PUFF) IH SCH (09:59)
--- NOTE | 2017-10-11 12:52 | PN ---
DATE OF SERVICE: 10/10/17 SUBJECTIVE: The patient was admitted with left-sided diverticulitis which was a failure as outpatient. The patient was started on soft diet which he is tolerating well. He is having bowel movements. Will start the patient on regular diet today, active and walking. REVIEW OF SYSTEMS: CONSTITUTIONAL: No fever, no chills. HEENT: Normal. ENDOCRINE: No weight gain, no weight loss. CVS: No angina symptoms. No CHF symptoms. No palpitations. No atypical chest pain for CAD. No shortness of breath. No PND, no orthopnea. RESPIRATORY: No cough, no hemoptysis. GI: No nausea, no vomiting. No abdominal pain. : No hematuria. No polyuria. MUSCULOSKELETAL:. No joint swelling. PSYCHIATRIC: Not anxious. No depression. No suicidal thoughts. No homicidal thoughts. SKIN: Intact. No rash. PHYSICAL EXAMINATION: V/S: BP 122/60, respiratory rate is 18, heart rate 79, temperature 97.8, saturation 95. HEENT: Normocephalic, atraumatic. Mucosa dry, pallor positive. No icterus. NECK: Supple. No JVD, no carotid bruit. No lymphadenopathy. LUNGS: Clear to auscultation. No rales or rhonchi. HEART: S1, S2 normal. No S3. No murmur, gallop or regurgitation. ABDOMEN: Soft, left upper quadrant discomfort is present. No tenderness. Bowel sounds active. No rigidity. No rebound or guarding. No CVA tenderness. EXTREMITIES: No clubbing, cyanosis or pedal edema. MUSCULOSKELETAL: No joint swelling. NEUROLOGIC: Awake, alert, oriented times three. No focal deficit. LYMPHATIC: No lymph nodes palpable. SKIN: Intact. LABS: White count 6.0, hemoglobin 16.2, hematocrit 46.2, platelet count 178. Sodium 137, potassium 4.1, chloride 104, bicarb 26, BUN 10, creatinine 0.79, glucose 204. ASSESSMENT: 1. LEFT SIGMOID COLITIS, FAILURE OUTPATIENT 2. RENAL MASS, SEEEING UROLOGIST 3. PULMONARY CYST, HAD BIOPSY WHICH WAS NEGATIVE FOR MALIGNANCY 4. CAD 5. DIABETES MELLITUS 6. DYSLIPIDEMIA 7. COPD PLAN: 1. Regular diet 2. Continue antibiotic Rocephin and Flagyl 3. Out of bed to chair 4. Activity as tolerated 5. Will follow the patient in daily rounds TIME SPENT: More than 35 minutes today JEFFRY
--- NOTE | 2017-11-08 15:05 | PN ---
DATE OF SERVICE: 10/09/17 SUBJECTIVE: The patient was admitted with diverticulitis. He is on a soft diet and still has left upper quadrant pain, but a lot better. No fever or chills. Accuchecks are being monitored and coverage was given. As the patient is not eating much, the patient's Insulin was not started yet. REVIEW OF SYSTEMS: CONSTITUTIONAL: No fever, no chills. HEENT: Normal. ENDOCRINE: No weight gain, no weight loss. CVS: No angina symptoms. No CHF symptoms. No palpitations. No atypical chest pain for CAD. No shortness of breath. No PND, no orthopnea. RESPIRATORY: No cough, no hemoptysis. GI: No nausea, no vomiting. Abdominal pain. : No hematuria. No polyuria. MUSCULOSKELETAL:. No joint swelling. PSYCHIATRIC: Not anxious. No depression. No suicidal thoughts. No homicidal thoughts. SKIN: Intact. No rash. PHYSICAL EXAMINATION: V/S: Blood pressure 113/81, respiratory rate 18, heart rate 83, temperature 98.1 , saturation 92. HEENT: Normocephalic, atraumatic. Mucosa dry. NECK: Supple. No JVD, no carotid bruit. No lymphadenopathy. LUNGS: Clear to auscultation. No rales or rhonchi. HEART: S1, S2 normal. No S3. No murmur, gallop or regurgitation. ABDOMEN: Left upper quadrant discomfort. Bowel sounds active. No rigidity. No rebound or guarding. No CVA tenderness. EXTREMITIES: No clubbing, cyanosis or pedal edema. MUSCULOSKELETAL: No joint swelling. NEUROLOGIC: Awake, alert, oriented times three. No focal deficit. LYMPHATIC: No lymph nodes palpable. SKIN: Intact. LABS: White count 6.3, hemoglobin 15.6, hematocrit 45.4, platelet count 171, sodium 140, potassium 3.9, chloride 107, bicarb 25, BUN 12, creatinine 0.81. ASSESSMENT: 1. LEFT SIDED ACUTE DIVERTICULITIS WITH TREATMENT FAILURE AN OUTPATIENT 2. RENAL MASS UNDER TREATMENT OF UROLOGIST 3. LUNG NODULE UNDER TREATMENT OF RN CORONARY CARE UNIT 4. CORONARY ARTERY DISEASE 5. CAROTID ENDARTERECTOMY 6. HYPERLIPIDEMIA 7. HYPERTENSION 8. CHRONIC OBSTRUCTIVE PULMONARY DISEASE 9. DIVERTICULOSIS 10. DIABETES PLAN: 1. Advance to soft diet. 2. Accuchecks with coverage. 3. Rocephin 1 gram daily. 4. I & O's. Time spent on the patient is more than 35 minutes today. TIME SPENT: More than 30 minutes MTDD
--- NOTE | 2017-11-18 12:25 | DS ---
DATE OF SERVICE: 10/11/17 FINAL DIAGNOSIS: 1. ACUTE SIGMOID DIVERTICULITIS, WHICH IS IMPROVED 2. DIABETES, CONTROLLED 3. RENAL MASS, HAS FOLLOW UP WITH UROLOGIST, DR. HUITRON 4. PULMONARY MASS, PATIENT HAS SEEN DR. DHILLON AND PLANNING FOR THE BIOPSY 5. CORONARY ARTERY DISEASE 6. DYSLIPIDEMIA 7. HYPERTENSION 8. ENLARGED PROSTATE 9. HIATAL HERNIA 10. CONTINUED NICOTINE USE DISCHARGE INSTRUCTIONS: 1. Discharge to home. 2. Follow up in the [facility] within 4 to 5 days. NEW PRESCRIPTIONS: Cipro 250 mg twice a day for five days. Please take some probiotics and yogurt as antibiotics can give the diarrhea. DIET INSTRUCTIONS: Diverticulosis diet, not nuts, seeds, popcorn. He was given an information booklet and Mary Alice Pump Room Operator did talk to the patient. ACTIVITY: As much as tolerated. HOSPITAL COURSE: Mr. Damion Kasper who is a 67 year old male was seen as an outpatient. CT scan done as an outpatient 10/08/17 showed the diverticulitis. The patient had a follow up with Dr. Gamboa and started on the antibiotics. He was not feeling better and still having the left upper abdominal pain and discomfort. There was no blood in the urine or bowel movements. At that time, the patient was admitted to the hospital for the IV antibiotics. Rocephin and Flagyl was given. The patient was kept NPO for one day. The patient also was having some follow up with the Dr. Huitron, Urologist and Dr. Dhillon, Direct Service Provider for the lung and the kidney mass. The patient's pain was gradually getting better. He was started on clear liquid diet. This was tolerated fine. We did make a dietitician consultation and let her talk to the patient about the diverticular diet about no seeds, no nuts and no popcorn. He verbalized understanding. Gradually, the soft diet was started and advanced on the patient. He did tolerate it well. He was up and about walking. The hemoglobin and hematocrit did not drop. As the patient was doing fine and repeat CT scan was showing the resolving diverticulitis, the patient was discharge home. TIME SPENT: MORE THAN 65 MINUTES TODAY [facility]
== END 2017-10-11 10:17 | disposition home or self-care (01) | DRG 392 ==
LOC: MEDSURG A 12:08
PROVIDERS: ADMIT Emergency Medicine; ATTEND Emergency Medicine
DX: K57.32 Diverticulitis of large intestine without perforation or abscess without bleeding (principal); K57.30 Diverticulosis of large intestine without perforation or abscess without bleeding; N28.89 Other specified disorders of kidney and ureter; J98.4 Other disorders of lung; E11.9 Type 2 diabetes mellitus without complications; I10 Essential (primary) hypertension; J44.9 Chronic obstructive pulmonary disease, unspecified; I25.10 Atherosclerotic heart disease of native coronary artery without angina pectoris; E78.5 Hyperlipidemia, unspecified; N40.0 Benign prostatic hyperplasia without lower urinary tract symptoms; K44.9 Diaphragmatic hernia without obstruction or gangrene; F17.200 Nicotine dependence, unspecified, uncomplicated; Z79.4 Long term (current) use of insulin; Z79.84 Long term (current) use of oral hypoglycemic drugs; Z79.899 Other long term (current) drug therapy
CPT/HCPCS: 36415; 80053; 81001; 82550; 82553; 82962; 84484; 85025; 93005; 93010; 97802

== ENCOUNTER 2017-11-18 10:58 | Inpatient (IN) ==
[2017-11-18] MEDS ORDERED: TYLENOL PO PRN (11:15)
--- NOTE | 2017-11-18 12:03 | CT ---
EXAM: CT chest without contrast. HISTORY: Cough, shortness of breath. Chills. COMPARISON: 09/13/2017. TECHNIQUE: Multiple axial images of the chest were obtained without intravenous contrast. Images we re reformatted in the sagittal and coronal planes. FINDINGS: Evaluation for lymphadenopathy is limited by lack of intravenous contrast. Right paratrac heal lymph node measures up to 2.6 cm short axis on axial image 17. Subcarinal lymph nodes measure u p to 3.4 cm short axis on axial image 31. There is confluent soft tissue density in the right hilum which encases and narrows the right upper l obe bronchus, right bronchus intermedius and right middle lobe bronchus which measures at least 6.3 c m transverse by 4.5 cm AP with extensive mass-like consolidation throughout the perihilar right upper lobe with numerous smaller nodular densities and ground-glass opacities throughout remainder of the right upper lobe. Mass-like consolidation extends into the right middle lobe where there are also gr ound-glass opacities and discrete nodules present as well. These findings have significantly worsened since the prior study. Right lower lobe and left lung are grossly clear. There is a tiny right pleu ral effusion. No pneumothorax identified. Calcified granulomatous changes present. Limited images of the upper abdomen demonstrate stable high density exophytic left renal lesion. Deg enerative changes present in the spine. No osteolytic or osteoblastic lesion detected IMPRESSION: 1. Significant worsening of right hilar mass with mass-like consolidation in the right upper and mid dle lobes. Additional right upper and right middle lobe ground-glass opacities and nodules are suspi cious for diffuse neoplastic involvement. Extensive mediastinal lymphadenopathy. 2. Tiny right pleural effusion.
[2017-11-18 12:20] VITALS: BMI 29.2
[2017-11-18] MEDS: LOVENOX SUBCUT SCH (12:56)
[2017-11-18] MEDS: ROCEPHIN 1 GM in SODIUM CHLORIDE 50 ML IV SCH (12:56)
[2017-11-18] MEDS: SODIUM CHLORIDE 1,000 ML IV SCH (12:56)
[2017-11-18] MEDS: ASPIRIN CHEWABLE PO SCH (14:28)
[2017-11-18] MEDS: NON-FORMULARY MEDICATION (Canagliflozin [Invokana] 100 MG) PO SCH (14:28)
[2017-11-18] MEDS: NON-FORMULARY MEDICATION (Fluticasone/Vilanterol [Breo Ellipta 100-25 Mcg Inh] 1 PUFF) IH SCH (14:28)
[2017-11-18] MEDS: LIPITOR PO SCH (14:29)
[2017-11-18] MEDS ORDERED: ALBUTEROL 0.042% NEB NEB PRN (14:43)
[2017-11-18] MEDS: SOLU-MEDROL 125 MG IVP SCH ×2 (14:56→21:55)
[2017-11-18] MEDS: DUONEB NEB SCH ×2 (18:07→22:30)
[2017-11-18] MEDS: GLUCOPHAGE PO SCH (18:24)
[2017-11-18] MEDS ORDERED: NON-FORMULARY MEDICATION (Metformin Hcl [Metformin Hcl] 1,000 MG) PO SCH (21:00)
[2017-11-18] MEDS ORDERED: NON-FORMULARY MEDICATION (Glipizide [Glipizide] 10 MG) PO SCH (21:00)
[2017-11-18] MEDS ORDERED: GLUCOPHAGE PO SCH (21:00)
[2017-11-18] MEDS: CALAN SR PO SCH (21:14)
[2017-11-18] MEDS: GLUCOTROL PO SCH (21:15)
[2017-11-18] MEDS: LANTUS SUBCUT SCH (21:15)
[2017-11-19] MEDS: SODIUM CHLORIDE 1,000 ML IV SCH ×2 (01:43→16:52)
[2017-11-19] MEDS: DUONEB NEB SCH ×4 (04:34→22:50)
[2017-11-19] MEDS: SOLU-MEDROL 125 MG IVP SCH ×3 (05:56→20:15)
[2017-11-19] MEDS: NON-FORMULARY MEDICATION (Canagliflozin [Invokana] 100 MG) PO SCH (05:56)
[2017-11-19] MEDS: NON-FORMULARY MEDICATION (Fluticasone/Vilanterol [Breo Ellipta 100-25 Mcg Inh] 1 PUFF) IH SCH (08:41)
[2017-11-19] MEDS: ALTACE PO SCH (08:42)
[2017-11-19] MEDS: ROCEPHIN 1 GM in SODIUM CHLORIDE 50 ML IV SCH (08:42)
[2017-11-19] MEDS: LIPITOR PO SCH (08:42)
[2017-11-19] MEDS: CALAN SR PO SCH ×2 (08:42→20:15)
[2017-11-19] MEDS: LOVENOX SUBCUT SCH (08:43)
[2017-11-19] MEDS: GLUCOTROL PO SCH ×2 (08:43→20:15)
[2017-11-19] MEDS: GLUCOPHAGE PO SCH ×2 (08:43→18:42)
[2017-11-19] MEDS: ASPIRIN CHEWABLE PO SCH (08:43)
[2017-11-19] MEDS ORDERED: RAMIPRIL 5 MG PO SCH (09:00)
[2017-11-19] MEDS: ZITHROMAX PO SCH (09:05)
[2017-11-19] MEDS: LANTUS SUBCUT SCH (20:23)
[2017-11-20] MEDS: DUONEB NEB SCH ×4 (05:03→22:55)
[2017-11-20] MEDS: SOLU-MEDROL 125 MG IVP SCH ×2 (06:08→12:35)
[2017-11-20] MEDS: SODIUM CHLORIDE 1,000 ML IV SCH (06:08)
[2017-11-20] MEDS: ROCEPHIN 1 GM in SODIUM CHLORIDE 50 ML IV SCH (08:04)
[2017-11-20] MEDS: NON-FORMULARY MEDICATION (Fluticasone/Vilanterol [Breo Ellipta 100-25 Mcg Inh] 1 PUFF) IH SCH (08:04)
[2017-11-20] MEDS: GLUCOTROL PO SCH ×2 (08:05→20:22)
[2017-11-20] MEDS: LOVENOX SUBCUT SCH (08:05)
[2017-11-20] MEDS: ALTACE PO SCH (08:06)
[2017-11-20] MEDS: GLUCOPHAGE PO SCH ×2 (08:06→17:16)
[2017-11-20] MEDS: LIPITOR PO SCH (08:06)
[2017-11-20] MEDS: ASPIRIN CHEWABLE PO SCH (08:06)
[2017-11-20] MEDS: ZITHROMAX PO SCH (08:06)
[2017-11-20] MEDS: CALAN SR PO SCH ×2 (08:06→20:22)
[2017-11-20] MEDS ORDERED: SODIUM CHLORIDE 1,000 ML IV SCH (08:20)
--- NOTE | 2017-11-20 11:09 | DI ---
EXAM: Chest two views HISTORY: Pneumonia COMPARISON: CT chest 11/18/2017 TECHNIQUE: Two views of the chest were performed FINDINGS: Right hilar mass that likely represents malignancy. Consolidation in the right lung may r epresent pneumonia and/or malignancy. Right paratracheal adenopathy. There is no pleural effusion or pneumothorax. The heart is normal in size. There are no acute abnormalities of the bones. IMPRESSION: Right hilar mass that likely represents malignancy. Consolidation in the right lung may represent pneumonia and/or malignancy. Right paratracheal adenopathy likely malignant..
[2017-11-20] MEDS: KEFLEX PO SCH (20:22)
[2017-11-20] MEDS: PREDNISONE PO SCH (20:22)
[2017-11-20] MEDS: LANTUS SUBCUT SCH (20:23)
[2017-11-21] MEDS: DUONEB NEB SCH ×2 (05:07→10:24)
[2017-11-21] MEDS: NON-FORMULARY MEDICATION (Fluticasone/Vilanterol [Breo Ellipta 100-25 Mcg Inh] 1 PUFF) IH SCH (08:59)
[2017-11-21] MEDS: LOVENOX SUBCUT SCH (08:59)
[2017-11-21] MEDS: ZITHROMAX PO SCH (09:00)
[2017-11-21] MEDS: CALAN SR PO SCH (09:01)
[2017-11-21] MEDS: ALTACE PO SCH (09:01)
[2017-11-21] MEDS: KEFLEX PO SCH (09:01)
[2017-11-21] MEDS: ASPIRIN CHEWABLE PO SCH (09:01)
[2017-11-21] MEDS: LIPITOR PO SCH (09:01)
[2017-11-21] MEDS: PREDNISONE PO SCH (09:01)
[2017-11-21] MEDS: GLUCOPHAGE PO SCH (09:01)
[2017-11-21] MEDS: GLUCOTROL PO SCH (09:01)
[2017-11-21 09:47] VITALS: BP 138/74; TEMP 96.9
[2017-11-21] MEDS ORDERED: KEFLEX PO STA (13:39)
--- NOTE | 2017-12-13 14:38 | PN ---
DATE OF SERVICE: 11/19/17 SUBJECTIVE: The patient was admitted from the [facility] yesterday for the COPD exacerbation, pneumonia and bronchitis. CT scan of the chest did show multiple patches of pneumonia. The patient is feeling better, but still has cough and shortness of breath. No fever or chills. REVIEW OF SYSTEMS: CONSTITUTIONAL: No fever, no chills. HEENT: Normal. ENDOCRINE: No weight gain, no weight loss. CVS: No angina symptoms. No CHF symptoms. No palpitations. No atypical chest pain for CAD. Shortness of breath. No PND, no orthopnea. RESPIRATORY: Cough, no hemoptysis. GI: No nausea, no vomiting. No abdominal pain. : No hematuria. No polyuria. MUSCULOSKELETAL: No joint swelling. PSYCHIATRIC: Not anxious. No depression. No suicidal thoughts. No homicidal thoughts. SKIN: Intact. No rash. PHYSICAL EXAMINATION: V/S: Blood pressure 128/63, respiratory rate 20, heart rate 70, temperature 96.6 , saturation 96 on 2 liters. HEENT: Normocephalic, atraumatic. Mucosa dry. Pallor positive. No icterus. NECK: Supple. No JVD, no carotid bruit. No lymphadenopathy. LUNGS: Decreased with basilar crackles, mild wheezing. No rales or rhonchi. HEART: S1, S2 normal. No S3. No murmur, gallop or regurgitation. ABDOMEN: Soft, nontender. Bowel sounds active. No rigidity. No rebound or guarding. No CVA tenderness. EXTREMITIES: No clubbing, cyanosis or pedal edema. MUSCULOSKELETAL: No joint swelling. NEUROLOGIC: Awake, alert, oriented times three. No focal deficit. LYMPHATIC: No lymph nodes palpable. SKIN: Intact. LABS: White count 5.55, hemoglobin 13.2, hematocrit 39.4, platelet count 247, sodium 138, potassium 4.4, chloride 107, bicarb 19, BUN 22, creatinine 0.75, glucose 210. ASSESSMENT: 1. COPD EXACERBATION SECONDARY TO COMMUNITY ACQUIRED PNEUMONIA 2. HYPOXEMIA SECONDARY TO THE PNEUMONIA 3. LUNG MASS, SEES DR. SUN 4. RENAL MASS, SEES DR. HUITRON 5. DIABETES TYPE II 6. SIGMOID DIVERTICULOSIS 7. CORONARY ARTERY DISEASE 8. DYSLIPIDEMIA 9. HYPERTENSION 10. COPD PLAN: 1. Continue the Lovenox, Rocephin and start the Zithromycin 500 mg p.o. daily. 2. Solu-Medrol every 8 hours. 3. Accuchecks with coverage. TIME SPENT: More than 35 minutes today MTDD
--- NOTE | 2017-12-13 14:48 | PN ---
DATE OF SERVICE: 11/20/17 SUBJECTIVE: The patient was admitted with community acquired pneumonia, shortness of breath, hypoxemia. The patient is feeling better with less coughing. He still has some shortness of breath with exertion. PHYSICAL EXAMINATION: V/S: Blood pressure 138/71, respiratory rate 16, heart rate 68, temperature 96.6 , saturation 95. HEENT: Normocephalic, atraumatic. Mucosa dry. Pallor positive. NECK: Supple. No JVD, no carotid bruit. No lymphadenopathy. LUNGS: Decreased basilar crackles with mild wheezing. No rales or rhonchi. HEART: S1, S2 normal. No S3. No murmur, gallop or regurgitation. ABDOMEN: Soft, nontender. Bowel sounds active. No rigidity. No rebound or guarding. No CVA tenderness. EXTREMITIES: No clubbing, cyanosis or pedal edema. MUSCULOSKELETAL: No joint swelling. NEUROLOGIC: Awake, alert, oriented times three. No focal deficit. LYMPHATIC: No lymph nodes palpable. SKIN: Intact. LABS: White count 9.71, hemoglobin 12.8, hematocrit 38.5, platelet count 254, sodium 139, potassium 4.8, chloride 109, bicarb 21, BUN 32, creatinine 0.80, glucose 244. ASSESSMENT: 1. COMMUNITY ACQUIRED PNEUMONIA 2. LUNG MASS UNDER EVALUATION 3. HYPOXEMIA 4. HYPERTENSION 5. DYSLIPIDEMIA 6. CORONARY ARTERY DISEASE 7. DIABETES 8. CAROTID ENDARTERECTOMY SURGERY PLAN: 1. Continue the Rocephin. 2. Decrease the IV fluids to 40 ml. 3. Solu-Medrol. 4. Accuchecks with the coverage. TIME SPENT: More than 35 minutes today. JEFFRY
--- NOTE | 2018-01-05 14:45 | DS ---
DATE OF SERVICE: 11/21/17 FINAL DIAGNOSIS: 1. Community acquired pneumonia 2. Acute hypoxemic respiratory failure secondary the community acquired pneumonia 3. Worsening lung mass most likely consistent with the lung cancer under evaluation with Dr. Magaña 4. Hypertension 5. Dyslipidemia 6. Coronary artery disease 7. Diabetes 8. Carotic endarterectomy 9. COPD 10.Kidney mass seeing urologist 11.Osteoarthritis DISCHARGE INSTRUCTIONS: Discharge the patient home. Followup in the [facility]. Keep appointment with Clinic on 11/25/17. Continue the rest of the home medications. Keep checking the sugars as he will be on steroids which may increase the sugars. If the sugars are more than 250 please call the office. MEDICATIONS AT DISCHARGE: Aspirin Atorvastatin Symbicort Risperdal Diltazem Breo Ellipta Glipizide DUO NEBS Metformin Ramipril NEW PRESCRIPTIONS: Keflex 500mg twice a day for 5 days Prednisone 10mg twice a day for 5 days DIET INSTRUCTIONS: Cardiac and Healthy ACTIVITY: As tolerated SMOKING: Current everyday smoker. DISEASE SPECIFIC EDUCATION: COPD Needing for the pneumonia vaccination Lung mass with history of smoking most consistent with lung cancer. Strictly advised that he should need to have the biopsy for further evaluation. HOSPITAL COURSE: Hong Kasper who is a 67 year old male with a history of Coronary artery disease, COPD and peripheral vascular disease came to the office complaining of cough, congestion, fever and getting yellow/green phlegm. The patient was recently diagnosed with lung mass and kidney mass for which he has seen the lung doctor and Urologist. Still under the evaluation. The patient was admitted to the hospital from the office directly. D-Dimer was 1668, ABG showed the pH 7.42, pCO2 35, pO2 68. CT chest done which shows significantly worsening right hilar mass, additional right upper and middle lobe ground glass opacities and nodules are suspicious for diffuse neoplastic involvement. Extensive mediastinal lymphadenopathy and tiny right pleural effusion. With the question post obstruction pneumonia the patient was admitted to the hospital and started on the IV antibiotics and breathing treatments. Solu-Medrol 80 Q 8 hours was given. Accu-checks with coverage was done. Gradually the patient was up and about and started walking. With the given treatment, DVT prophylaxis with Lovenox was also started. The patient tolerated the treatment fine. Rocephin and Azithromycin was given initially and then changed it to the Keflex. Gradually started feeling a lot better, not have any complications. Talked with the about the worsening lung mass for which the patient will be needed to biopsy. The possibility of the lung cancer been discussed with the patient and verbalized understanding. TIME SPENT: MORE THAN 65 MINUTES MTDD
== END 2017-11-21 14:15 | disposition home or self-care (01) | DRG 193 ==
LOC: MEDSURG B 10:58
PROVIDERS: ADMIT Emergency Medicine; ATTEND Emergency Medicine
DX: J18.9 Pneumonia, unspecified organism (principal); J96.01 Acute respiratory failure with hypoxia; C34.01 Malignant neoplasm of right main bronchus; J44.1 Chronic obstructive pulmonary disease with (acute) exacerbation; R91.8 Other nonspecific abnormal finding of lung field; I10 Essential (primary) hypertension; I25.10 Atherosclerotic heart disease of native coronary artery without angina pectoris; I73.9 Peripheral vascular disease, unspecified; E11.9 Type 2 diabetes mellitus without complications; N28.89 Other specified disorders of kidney and ureter; E78.5 Hyperlipidemia, unspecified; K57.30 Diverticulosis of large intestine without perforation or abscess without bleeding; M19.90 Unspecified osteoarthritis, unspecified site; F17.210 Nicotine dependence, cigarettes, uncomplicated; Z98.890 Other specified postprocedural states; Z79.4 Long term (current) use of insulin; Z79.84 Long term (current) use of oral hypoglycemic drugs; Z79.899 Other long term (current) drug therapy
CPT/HCPCS: 36415; 80053; 82550; 82803; 82962; 83605; 83880; 84145; 84484; 85025; 85379; 87040; 93005; 93010; 94640

== ENCOUNTER 2017-11-18 13:24 | Outpatient (CLI) ==
[2017-11-18 12:20] VITALS: BMI 29.2
[2017-11-18 13:47] LABS: FLU INTERNAL QC INTERNAL QC VALID; RAPID FLU A NEGATIVE (NEGATIVE); RAPID FLU B NEGATIVE (NEGATIVE)
== END 2017-11-18 13:25 | disposition home or self-care (01) ==
LOC: LAB 13:24
PROVIDERS: ATTEND Nurse Practitioner Family
DX: R50.9 Fever, unspecified (principal); R05 Cough
CPT/HCPCS: 87651; 87804; 87880

== ENCOUNTER 2017-11-23 23:30 | Emergency (ER) ==
[2017-11-23 23:31] VITALS: BMI 29.2
[2017-11-23 23:40] VITALS: BP 168/86; TEMP 98.6
[2017-11-23] MEDS ORDERED: MORPHINE 2 MG/ML SYRINGE IVP STA (23:58)
[2017-11-23] MEDS ORDERED: ZOFRAN 4 MG/2 ML IVP STA (23:59)
[2017-11-24] MEDS ORDERED: DUONEB NEB STA (00:21)
--- NOTE | 2017-11-24 01:03 | CT ---
Exam: CT maxillofacial without contrast History: Headache and right periorbital pain Technique: [address] facial bones with multiplanar reformations FINDINGS: Paranasal sinuses are clear. The orbits appear normal. No bony abnormalities are seen. The parotid and submandibular glands appear normal. No inflammatory changes are seen. Impression: 1. No abnormalities of the facial bones or orbits.
--- NOTE | 2017-11-24 01:04 | CT ---
EXAM: CT scan brain without contrast HISTORY: Headache COMPARISON: None. FINDINGS: Contiguous axial images were obtained from the skull base to the convexities without contr ast utilizing 5-mm collimation. Sagittal coronal reconstructions were imaged and reviewed. The vent ricles and CSF spaces are within normal limits. There is no evidence of acute territorial infarction , intracranial hemorrhage or mass. No abnormal extra-axial fluid collections identified. Atheroscle rotic changes are seen involving internal carotids at the level of the cavernous sinus. There is thi ckening seen in the bilateral ethmoid sinuses. IMPRESSION: No acute intracranial findings ASVD
--- NOTE | 2017-11-24 01:42 | CT ---
Exam: CT angiography of the chest History: Chest pain Technique: [address] of the chest utilizing CT angiography protocol. Multiplanar and thr ee-dimensional reformations were performed. FINDINGS: Compared with 11/18/2017. The exam is technically adequate for evaluation of pulmonary ar teries and aorta. There are no pulmonary artery filling defects. Mediastinal and right hilar mass a gain noted. Peripheral consolidative change shows interval improvement. Small right pleural effusio n is present. No developing opacities on the left. No acute findings of the chest wall soft tissues or bony thorax. No acute findings of the upper abdomen. Impression: 1. Interval improvement of postobstructive pneumonia changes in the right upper lobe. 2. No evidence of pulmonary artery thrombus 3. Stable right hilar and mediastinal mass with likely malignant lymphadenopathy.
--- NOTE | 2017-11-24 02:44 | CT ---
EXAM: CT scan neck with without contrast HISTORY: Neck pain COMPARISON: None. FINDINGS: Contiguous axial images obtained from level posterior fossa through the thoracic inlet bot h before after uneventful administration of intravenous contrast utilizing 3-mm collimation. Sagitta l and coronal reconstructions were imaged and reviewed.. Visualized posterior fossa structures unrem arkable. Nasopharynx, oropharynx and hypopharynx are unremarkable. Subglottic trachea and thyroid a re normal. The major salivary glands are symmetric and normal. Bulky lymphadenopathy is seen in the mediastinum and right hilum. Please see CT chest performed the same day. Degenerative changes noted throughout the cervical spine. IMPRESSION: No acute findings within the neck. Please see CT thorax performed the same day for discussion of mediastinal and right hilar lymphadenop athy
--- NOTE | 2017-11-24 03:08 | ED.PDOC ---
General ED Provider: Dr. PRINCESS ROTHMAN-ER Chief Complaint: Neck Pain Non-Injury Stated Complaint: i was just here for pneumonia--now it hurts to swallow Time Seen by Physician: 23:35 Mode of Arrival: Walk-In Information Source: Patient Exam Limitations: No limitations [facility] Nursing and Triage Documentation Reviewed and Agree: Yes Reviewed sepsis parameters & appropriate labs ordered?: Yes System Inflammatory Response Syndrome: Not Applicable Sepsis Protocol: For patient's 13 years and over: Temp is 96.8 and below OR 101 and greater Pulse >90 BPM Resp >20/minute Acutely Altered Mental Status Are patient's symptoms suggestive of a new infection, such as: -Pneumonia -Skin, Soft Tissue -Endocarditis -UTI -Bone, Joint Infection -Implantable Device -Acute Abdominal Infection -Wound Infection -Meningitis -Blood Stream Catheter Infection -Unknown GI Complaint Exam - Abdominal Pain Complaint/Exam Onset: Gradual Duration: 24 hrs Symptoms Are: Still present Timing: Intermittent Initial Severity: Mild Current Severity: Moderate Location of Pain: Discrete Character: Reports: Dull, Aching Aggravating: Reports: Eating Alleviating: Reports: None Associated Signs and Symptoms: Denies: Diaphoresis, Fever, Cough, Chest pain, Dizziness, Back pain, Constipation, Blood in stool, Dysuria, Urinary frequency, Decreased urine output, Decreased appetite, Discharge, Nausea, Vomiting, Diarrhea, Decreased activity Abdominal Findings: Present: None Differential Diagnoses: Other Quality Indicator For Non-Traumatic Chest Pain/Syncope: EKG Performed Review of Systems - Review Of Systems Constitutional: Reports: No symptoms Eyes: Reports: No symptoms Ears, Nose, Mouth, Throat: Reports: No symptoms Respiratory: Reports: Cough Cardiac: Reports: Chest pain GI: Reports: Abdominal pain : Reports: No symptoms Musculoskeletal: Reports: No symptoms Skin: Reports: No symptoms Neurological: Reports: No symptoms Endocrine: Reports: No symptoms Hematologic/Lymphatic: Reports: No symptoms All Other Systems: Reviewed and Negative Past Medical History - Past Medical History Previously Healthy: Yes Endocrine: Reports: DM 2, Dyslipidemia Cardiovascular: Reports: Hypertension Respiratory: Reports: COPD Hematological: Reports: None Gastrointestinal: Reports: None Genitourinary: Reports: None Neuro/Psych: Reports: None Musculoskeletal: Reports: Arthritis Cancer: Reports: None - Surgical History General Surgical History: Reports: Other (eyes-lasic) - Family History Family History: Reports: Unknown - Social History Smoking Status: Current every day smoker, Light tobacco smoker Hx Substance Use: No Alcohol Screening: None Lives: With family - Immunizations Tetanus Shot up to Date: Yes Physical Exam - Physical Exam Appearance: Well-appearing, No pain distress, Well-nourished Eyes: RAEANN, EOMI, Conjunctiva clear ENT: Ears normal, Nose normal, Oropharynx normal Neck: Supple Respiratory: Airway patent, Breath sounds clear, Breath sounds equal, Respirations nonlabored Cardiovascular: RRR, Pulses normal, No rub, No murmur GI/: Soft, Nontender, No masses, Bowel sounds normal, No Organomegaly Musculoskeletal: Normal strength, ROM intact, No edema, No calf tenderness Skin: Warm, Dry, Normal color Neurological: Sensation intact, Motor intact, Reflexes intact, Cranial nerves intact, Alert, Oriented Psychiatric: Affect appropriate, Mood appropriate Interpretation - Radiology Interpretation Radiology Interpretation By: Radiologist Radiology Results: Positive Exam Interpreted: CT Scan Re-Evaluation - Re-Evaluation Time of Re-Evaluation: 03:08 Status: Improved Vital Signs Stable: Yes Pain Level: 0 Appearance: NAD Lungs: Clear Skin: Warm and Dry Neuro: Alert and Oriented X3 CV: RRR Physician Notification - Case Discussed Physician Notified: dr nunes Time of Notification: 03:13 (ok to transfer for eval) Critical Care Note - Critical Care Note Total Time (mins): 0 Course - Course Hematology/Chemistry: 11/24/17 00:05 11/24/17 00:05 Orders, Labs, Meds: Lab Review 11/23/17 11/24/17 11/24/17 23:45 00:05 00:05 WBC 10.68 H RBC 5.04 Hgb 14.8 Hct 43.2 MCV 85.7 MCH 29.4 MCHC 34.3 RDW Coeff of Oren 13.0 Plt Count 277 Immature Gran % (Auto) 2.0 Neut % (Auto) 78.2 Lymph % (Auto) 10.9 Jasper % (Auto) 7.9 Eos % (Auto) 0.6 Baso % (Auto) 0.4 Immature Gran # (Auto) 0.2 Neut # 8.4 H Lymph # 1.2 Jasper # 0.8 Eos # 0.1 Baso # 0.0 PT INR Sodium 140 Potassium 4.0 Chloride 106 Carbon Dioxide 27 Anion Gap 11.0 BUN 25 H Creatinine 0.90 Estimated GFR (MDRD) 84.00 BUN/Creatinine Ratio 27.77 Glucose 334 H Calcium 9.2 Total Bilirubin < 0.3 AST 14 L ALT 28 Alkaline Phosphatase 95 Total Creatine Kinase 59 Troponin I 0.0770 Total Protein 7.1 Albumin 2.8 L Globulin 4.3 Albumin/Globulin Ratio 0.65 Influenza A (Rapid) Negative by naat Influenza B (Rapid) Negative by naat 11/24/17 00:05 WBC RBC Hgb Hct MCV MCH MCHC RDW Coeff of Oren Plt Count Immature Gran % (Auto) Neut % (Auto) Lymph % (Auto) Jasper % (Auto) Eos % (Auto) Baso % (Auto) Immature Gran # (Auto) Neut # Lymph # Jasper # Eos # Baso # PT 9.3 INR 0.91 Sodium Potassium Chloride Carbon Dioxide Anion Gap BUN Creatinine Estimated GFR (MDRD) BUN/Creatinine Ratio Glucose Calcium Total Bilirubin AST ALT Alkaline Phosphatase Total Creatine Kinase Troponin I Total Protein Albumin Globulin Albumin/Globulin Ratio Influenza A (Rapid) Influenza B (Rapid) Orders Category Date Time Status EKG-(ED ONLY) Stat CARDIO 11/23/17 23:51 Completed NEBULIZER TREATMENT Stat CARDIO 11/24/17 00:21 Completed NPO REMINDER: IMAGING ONCE CARE 11/23/17 23:53 Active ED IV/MEDIPORT/POWERPORT .ONCE EMERGENCY 11/23/17 23:52 Active CBC W/ AUTO DIFF Stat LAB 11/23/17 00:05 Completed COMPREHENSIVE METABOLIC PANEL Stat LAB 11/23/17 00:05 Completed CREATINE KINASE Stat LAB 11/23/17 00:05 Completed MOLECULAR GROUP A STREP Stat LAB 11/23/17 23:45 Results PT WITH INR Stat LAB 11/24/17 00:05 Completed RAPID FLU A/B Stat LAB 11/23/17 23:45 Completed STREP SCREEN Stat LAB 11/23/17 23:45 Results TROPONIN I Stat LAB 11/23/17 00:05 Completed 0.9 % Sodium Chloride [Saline Flush] MEDS 11/23/17 23:52 Ordered 1 syr IVF PRN PRN Ipratropium/Albuterol Neb [Duoneb] MEDS 11/24/17 00:21 Discontinued 1 vial NEB ONCE STA Morphine Sulfate [Morphine 2 mg/ml Syringe] MEDS 11/23/17 23:58 Discontinued 2 mg IVP ONCE STA Ondansetron HCl/Pf [Zofran 4 mg/2 ml] MEDS 11/23/17 23:59 Discontinued 4 [address] IVP ONCE STA CT CHEST PE PROTOCOL Stat RADS 11/24/17 00:[address] HEAD W/O CONTRAST Stat RADS 11/24/17 00:[address] MAXILLOFACIAL W/O CONTRAST Stat RADS 11/24/17 00:[address] SOFT TISSUE NECK W/WO CONT Stat RADS 11/24/17 00:09 Completed Medications Generic Name Dose Route Start Last Admin Trade Name Freq PRN Reason Stop Dose Admin Sodium Chloride 1 syr 11/23/17 23:52 11/24/17 00:16 Saline Flush IVF 1 syr PRN PRN Administration To flush IV Discontinued Medications Generic Name Dose Route Start Last Admin Trade Name Freq PRN Reason Stop Dose Admin Albuterol/Ipratropium 1 vial 11/24/17 00:21 11/24/17 00:44 Duoneb NEB 11/24/17 00:22 1 vial ONCE STA Administration Morphine Sulfate 2 mg 11/23/17 23:58 11/24/17 00:12 Morphine 2 Mg/Ml Syringe IVP 11/23/17 23:59 2 mg ONCE STA Administration Ondansetron HCl 4 mg 11/23/17 23:59 11/24/17 00:10 Zofran 4 Mg/2 Ml IVP 11/24/17 00:00 4 mg ONCE STA Administration Vital Signs: Temp Pulse Resp BP Pulse Ox 11/23/17 23:31 98.6 F 81 32 H 168/86 H 94 L Departure - Departure Time of Disposition: 03:13 Disposition: TSF SHORT-TRM HOSP Discharge Problem: Odynophagia, Mediastinal mass Instructions: Neck Pain (ED), Acute Neck Pain (ED) Condition: Good Pt referred to PMD for follow-up: Yes Allergies/Adverse Reactions: Allergies meperidine HCl [From Demerol] Allergy (Mild, Verified 11/24/17 00:16) Unknown Hallucinations Home Medications: Ambulatory Orders Aspirin 81 mg PO DAILY 05/17/14 Verapamil HCl [Verapamil ER] 180 mg PO BID 09/13/17 Fluticasone/Vilanterol [Breo Ellipta 100-25 Mcg INH] 1 puff IH DAILY 10/08/17 Cephalexin [Keflex] 500 mg PO BID 5 Days #10 capsule 11/21/17 Prednisone 10 mg PO BIDWM 5 Days #10 tablet 11/21/17 Transfer Form Completed: Yes Disposition Discussed With: Patient, Family
== END 2017-11-24 05:00 | disposition short-term general hospital (02) ==
LOC: ED 23:30
DX: R13.19 Other dysphagia (principal); J98.59 Other diseases of mediastinum, not elsewhere classified; R07.9 Chest pain, unspecified; R10.9 Unspecified abdominal pain; M54.2 Cervicalgia; R05 Cough; I10 Essential (primary) hypertension; J44.9 Chronic obstructive pulmonary disease, unspecified; F17.210 Nicotine dependence, cigarettes, uncomplicated; E11.9 Type 2 diabetes mellitus without complications; E78.5 Hyperlipidemia, unspecified; Z79.899 Other long term (current) drug therapy; R91.8 Other nonspecific abnormal finding of lung field
CPT/HCPCS: 36415; 80053; 82550; 84484; 85025; 85610; 87502; 87651; 87880; 93005; 93010; 94640; 96374; 96375; 99285

== ENCOUNTER 2017-11-24 05:00 | Outpatient (CLI) ==
[2017-11-23 23:31] VITALS: BMI 29.2
== END 2017-11-24 05:01 | disposition home or self-care (01) ==
LOC: AMBL 05:00
PROVIDERS: ATTEND Family Medicine
DX: R91.8 Other nonspecific abnormal finding of lung field (principal)

== ENCOUNTER 2018-01-06 12:07 | Inpatient (IN) ==
[2018-01-06 12:36] VITALS: BMI 28.0
[2018-01-06] MEDS ORDERED: ATROPINE SULFATE PFS IVP PRN (12:39)
[2018-01-06] MEDS ORDERED: MORPHINE 4 MG/ML VIAL IVP PRN (12:39)
[2018-01-06] MEDS ORDERED: TYLENOL PO PRN (12:39)
[2018-01-06] MEDS ORDERED: VISTARIL INJ IM PRN (12:39)
[2018-01-06] MEDS ORDERED: NITROSTAT SL PRN (12:39)
[2018-01-06] MEDS ORDERED: NON-FORMULARY MEDICATION (Ondansetron Hcl [Zofran] 8 MG) PO PRN (14:21)
[2018-01-06] MEDS ORDERED: ZOFRAN TAB PO PRN (15:07)
[2018-01-06] MEDS: SODIUM CHLORIDE 1,000 ML IV SCH (15:23)
[2018-01-06] MEDS: ROCEPHIN 1 GM in SODIUM CHLORIDE 50 ML IV SCH (15:35)
[2018-01-06] MEDS: ZITHROMAX PO SCH (15:35)
[2018-01-06] MEDS: GLUCOPHAGE PO SCH (16:33)
[2018-01-06] MEDS: NORCO 7.5-325 PO SCH ×2 (16:33→20:22)
[2018-01-06] MEDS: PROTONIX PO SCH (16:33)
[2018-01-06] MEDS: GLUCOTROL PO SCH (16:33)
--- NOTE | 2018-01-06 16:39 | CT ---
EXAM: CT THORAX HISTORY: Shortness of breath, cough and fever. History of lung cancer. TECHNIQUE: CT thorax without intravenous contrast. Multiplanar images presented. Coronal and sagit roxie re-formations. COMPARISON: 11/24/2017 FINDINGS: Heart size is within normal limits. There is a small pericardial effusion. There is mild atheroscle rotic disease. There is subcarinal and right hilar lymphadenopathy. Evaluation of the mediastinum a nd hilar structures is limited without the administration of intravenous contrast agent. Cannot excl ude residual right hilar neoplasia. The soft tissue abundance in these regions has decreased noticea raúl since previous exam likely related to interval treatment. The left lung is clear. There is a right pleural effusion which is at least small in size. There ace s been development of or worsening of right upper lobe consolidation as well as consolidation in the right lung base. Both of which are moderate in degree currently. A few tiny nodules within the righ t upper lobe are probably stable. Comparison is difficult between the two studies secondary to infil trates in this region. There is no pneumothorax. The bones reveal age-related degenerative changes of the spine. Scattered nonspecific bilateral axil nanda lymph nodes are stable. There is a exophytic 2.5 cm mass off of the lateral left renal cortex w ith higher than water attenuation, stable in size since previous study. IMPRESSION: 1. Increasing consolidation on the right, both in the upper and lower lobes consistent with atelect asis and probable pneumonia. Increasing right pleural fluid volume. 2. Mediastinal and right hilar lymphadenopathy and / or residual right hilar neoplasia has noticeabl y decreased since previous exam. 3. A few tiny right lung nodules appear grossly stable and are indeterminate. 4. Small pericardial effusion appears new. 5. Relative high attenuation exophytic left renal cortical mass is stable, possibly a cyst with high proteinaceous fluid. Consider correlation with renal ultrasound.
[2018-01-06] MEDS: DUONEB NEB SCH ×2 (18:17→23:04)
[2018-01-06] MEDS: CORDARONE PO SCH (20:21)
[2018-01-06] MEDS: LANTUS SUBCUT SCH (20:21)
[2018-01-06] MEDS: LIBRIUM PO SCH (20:21)
[2018-01-06] MEDS ORDERED: NON-FORMULARY MEDICATION (Glipizide [Glipizide] 10 MG) PO SCH (21:00)
[2018-01-06] MEDS ORDERED: NON-FORMULARY MEDICATION (Metformin Hcl [Metformin Hcl] 1,000 MG) PO SCH (21:00)
[2018-01-07] MEDS: NORCO 7.5-325 PO SCH ×6 (00:41→20:42)
[2018-01-07] MEDS: SODIUM CHLORIDE 1,000 ML IV SCH ×2 (03:28→15:13)
[2018-01-07] MEDS: DUONEB NEB SCH ×4 (05:05→20:50)
[2018-01-07] MEDS ORDERED: ASPIRIN EC PO SCH (08:00)
[2018-01-07] MEDS ORDERED: NON-FORMULARY MEDICATION (Fluticasone/Vilanterol [Breo Ellipta 100-25 Mcg Inh] 1 PUFF) IH SCH (09:00)
[2018-01-07] MEDS ORDERED: NON-FORMULARY MEDICATION (Buspirone Hcl [Buspirone Hcl] 15 MG) PO SCH (09:00)
[2018-01-07] MEDS ORDERED: RAMIPRIL 5 MG PO SCH (09:00)
[2018-01-07] MEDS: ROCEPHIN 1 GM in SODIUM CHLORIDE 50 ML IV SCH (09:31)
[2018-01-07] MEDS: LIBRIUM PO SCH ×2 (09:32→20:42)
[2018-01-07] MEDS: ZITHROMAX PO SCH (09:32)
[2018-01-07] MEDS: SYMBICORT 160-4.5 MCG INHALER IH SCH ×2 (09:32→20:44)
[2018-01-07] MEDS: ASPIRIN CHEWABLE PO SCH (09:32)
[2018-01-07] MEDS: CARDIZEM CD PO SCH (09:32)
[2018-01-07] MEDS: ALTACE PO SCH (09:32)
[2018-01-07] MEDS: GLUCOPHAGE PO SCH ×2 (09:32→17:25)
[2018-01-07] MEDS: GLUCOTROL PO SCH ×2 (09:32→17:25)
[2018-01-07] MEDS: BUSPAR PO SCH (09:33)
[2018-01-07] MEDS: LIPITOR PO SCH (09:33)
[2018-01-07] MEDS: CORDARONE PO SCH ×2 (09:33→20:42)
[2018-01-07] MEDS: PROTONIX PO SCH (17:24)
[2018-01-07] MEDS: HUMULIN R SUBCUT PRN ×2 (17:34→20:43)
[2018-01-07] MEDS: LANTUS SUBCUT SCH (20:43)
[2018-01-08] MEDS: NORCO 7.5-325 PO SCH ×6 (01:00→21:45)
[2018-01-08] MEDS: SODIUM CHLORIDE 1,000 ML IV SCH ×2 (02:36→16:00)
[2018-01-08] MEDS: DUONEB NEB SCH ×4 (04:52→20:33)
[2018-01-08] MEDS: ROCEPHIN 1 GM in SODIUM CHLORIDE 50 ML IV SCH (08:56)
[2018-01-08] MEDS: BUSPAR PO SCH (08:57)
[2018-01-08] MEDS: ZITHROMAX PO SCH (08:57)
[2018-01-08] MEDS: LIPITOR PO SCH (08:57)
[2018-01-08] MEDS: ASPIRIN CHEWABLE PO SCH (08:57)
[2018-01-08] MEDS: ALTACE PO SCH (08:57)
[2018-01-08] MEDS: GLUCOTROL PO SCH ×2 (08:57→16:59)
[2018-01-08] MEDS: GLUCOPHAGE PO SCH ×2 (08:58→16:58)
[2018-01-08] MEDS: LIBRIUM PO SCH ×2 (08:58→21:45)
[2018-01-08] MEDS: CORDARONE PO SCH ×2 (08:58→21:45)
[2018-01-08] MEDS: CARDIZEM CD PO SCH (08:58)
[2018-01-08] MEDS: SYMBICORT 160-4.5 MCG INHALER IH SCH ×2 (08:59→21:44)
[2018-01-08] MEDS: HUMULIN R SUBCUT PRN ×3 (11:55→21:50)
[2018-01-08] MEDS: PROTONIX PO SCH (16:59)
[2018-01-08] MEDS: LANTUS SUBCUT SCH (21:46)
[2018-01-09] MEDS: NORCO 7.5-325 PO SCH ×6 (00:52→20:56)
[2018-01-09] MEDS: SODIUM CHLORIDE 1,000 ML IV SCH ×2 (03:05→17:15)
[2018-01-09] MEDS: DUONEB NEB SCH ×4 (04:55→20:50)
[2018-01-09] MEDS: PROTONIX PO SCH ×2 (06:04→16:55)
[2018-01-09] MEDS ORDERED: LASIX IVP STA (08:07)
[2018-01-09] MEDS ORDERED: CITRATE OF MAGNESIA PO STA (08:07)
[2018-01-09] MEDS: ASPIRIN CHEWABLE PO SCH (08:57)
[2018-01-09] MEDS: LIBRIUM PO SCH ×2 (08:57→20:55)
[2018-01-09] MEDS: ALTACE PO SCH (08:57)
[2018-01-09] MEDS: GLUCOPHAGE PO SCH ×2 (08:58→16:55)
[2018-01-09] MEDS: LIPITOR PO SCH (08:58)
[2018-01-09] MEDS: CORDARONE PO SCH ×2 (08:58→20:55)
[2018-01-09] MEDS: CARDIZEM CD PO SCH (08:58)
[2018-01-09] MEDS: GLUCOTROL PO SCH ×2 (08:58→16:55)
[2018-01-09] MEDS: BUSPAR PO SCH (08:59)
[2018-01-09] MEDS: SYMBICORT 160-4.5 MCG INHALER IH SCH ×2 (08:59→20:57)
[2018-01-09] MEDS: HUMULIN R SUBCUT PRN ×2 (12:12→20:56)
[2018-01-09] MEDS: AZACTAM 1 GM in SODIUM CHLORIDE 50 ML IV SCH ×2 (13:45→20:55)
[2018-01-09] MEDS: LANTUS SUBCUT SCH (20:56)
[2018-01-10] MEDS: NORCO 7.5-325 PO SCH ×3 (00:49→08:54)
[2018-01-10] MEDS: DUONEB NEB SCH ×2 (05:02→10:13)
[2018-01-10] MEDS: AZACTAM 1 GM in SODIUM CHLORIDE 50 ML IV SCH (05:56)
[2018-01-10] MEDS: PROTONIX PO SCH (05:57)
[2018-01-10] MEDS: CORDARONE PO SCH (08:54)
[2018-01-10] MEDS: LIBRIUM PO SCH (08:54)
[2018-01-10] MEDS: LIPITOR PO SCH (08:54)
[2018-01-10] MEDS: CARDIZEM CD PO SCH (08:55)
[2018-01-10] MEDS: ASPIRIN CHEWABLE PO SCH (08:55)
[2018-01-10] MEDS: GLUCOPHAGE PO SCH (08:55)
[2018-01-10] MEDS: GLUCOTROL PO SCH (08:55)
[2018-01-10] MEDS: BUSPAR PO SCH (08:55)
[2018-01-10] MEDS: ALTACE PO SCH (08:56)
[2018-01-10] MEDS: SYMBICORT 160-4.5 MCG INHALER IH SCH (08:57)
[2018-01-10 10:05] VITALS: BP 151/75; TEMP 98.1
--- NOTE | 2018-01-10 13:26 | PN ---
DATE OF SERVICE: 01/09/18 SUBJECTIVE: Still coughing, has some wheezing and had some blood overnight in the sputum. REVIEW OF SYSTEMS: CONSTITUTIONAL: No fever, no chills. HEENT: Normal. ENDOCRINE: No weight gain, no weight loss. CVS: No angina symptoms. No CHF symptoms. No palpitations. No atypical chest pain for CAD. No shortness of breath. No PND, no orthopnea. RESPIRATORY: No cough, no hemoptysis. GI: No nausea, no vomiting. No abdominal pain. : No hematuria. No polyuria. MUSCULOSKELETAL: No joint swelling. PSYCHIATRIC: Not anxious. No depression. No suicidal thoughts. No homicidal thoughts. SKIN: Intact. No rash. PHYSICAL EXAMINATION: V/S: Blood pressure 156/72, respiratory rate 20, heart rate 88, temperature 98.1 with saturation 95%. HEENT: Normocephalic, atraumatic. Mucosa dry. Pallor positive. No icterus. NECK: Supple. No JVD, no carotid bruit. No lymphadenopathy. LUNGS: Decreased and expiratory wheezing is present. Basilar crackles. No rales or rhonchi. HEART: S1, S2 normal. No S3. No murmur, gallop or regurgitation. ABDOMEN: Soft, nontender. Bowel sounds active. No rigidity. No rebound or guarding. No CVA tenderness. EXTREMITIES: No pedal edema. No clubbing or cyanosis MUSCULOSKELETAL: No joint swelling. NEUROLOGIC: Awake, alert, oriented times three. No focal deficit. LYMPHATIC: No lymph nodes palpable. SKIN: Intact. LABS: Sodium 136, potassium 4.3, chloride 105, bicarb 23, BUN 16, creatinine 0.66, WBC 1.94, hgb 8.0, hct 24.1, plt count 91. ASSESSMENT: 1. Hemoptysis 2. Pneumonia right upper lobe, community acquired 3. Lung cancer on Chemo and radiation 4. Renal mass under evaluation 5. Hypo Leukopenia 6. Thrombocytopenia most likely from the sepsis PLAN: 1. Leuko-neutropenic precautions 2. Continue the Rocephin 1 gram daily 3. Will change antibiotic to Azactam 4. Breathing treatments 5. Solu-Medrol 6. Explained about the The patient's condition and will talk to Dr. Rolle for further advise as patient's oncologist is Dr. Rolle. TIME SPENT: More than 35 minutes MTDD
--- NOTE | 2018-01-10 13:29 | PN ---
DATE OF SERVICE: 01/08/18 SUBJECTIVE: The patient has some blood in sputum with coughing. No fever since admission. White count has dropped today 1.94 to 8.0, hemoglobin 9.6. REVIEW OF SYSTEMS: CONSTITUTIONAL: No fever, no chills. HEENT: Normal. ENDOCRINE: No weight gain, no weight loss. CVS: No angina symptoms. No CHF symptoms. No palpitations. No atypical chest pain for CAD. No shortness of breath. No PND, no orthopnea. RESPIRATORY: No cough, no hemoptysis. GI: No nausea, no vomiting. No abdominal pain. : No hematuria. No polyuria. MUSCULOSKELETAL: No joint swelling. PSYCHIATRIC: Not anxious. No depression. No suicidal thoughts. No homicidal thoughts. SKIN: Intact. No rash. PHYSICAL EXAMINATION: V/S: BP 130/79, respiratory rate 18, heart rate 78, temperature 98.0, saturation 95. HEENT: Normocephalic, atraumatic. Mucosa dry, pallor positive. No icterus. NECK: Supple. No JVD, no carotid bruit. No lymphadenopathy. LUNGS: Decreased. Mild expiratory wheeze present. HEART: S1, S2 normal. No S3. No murmur, gallop or regurgitation. ABDOMEN: Soft, nontender. Bowel sounds active. No rigidity. No rebound or guarding. No CVA tenderness. EXTREMITIES: No pedal edema. No clubbing or cyanosis MUSCULOSKELETAL: No joint swelling. NEUROLOGIC: Awake, alert, oriented times three. No focal deficit. LYMPHATIC: No lymph nodes palpable. SKIN: Intact. LABS: White count 1.94, hemoglobin 8.0, hematocrit 74.1, platelet count 91. BUN 16, creatinine 0.66, sodium 136, potassium 4.3, chloride 105. ASSESSMENT: 1. COMMUNITY ACQUIRED PNEUMONIA 2. RIGHT LUNG CANCER, ON CHEMOTHERAPY AND RADIATION 3. PANCYTOPENIA 4. ANEMIA 5. LOWER GI BLEED 6. WILL DO ANEMIA PROFILE PROTOCOL 7. KIDNEY MASS UNDER EVALUATION 8. ANXIETY DISORDER PLAN: 1. Anemia profile 2. Stool for occult blood test 3. Continue Rocephin and Azithromycin 4. Duonebs 5. Solu-Medrol 6. Daily I & O's 7. Protonix - will increase to twice a day 8. Decrease IV fluids to 30 mL/hr TIME SPENT: More than 35 minutes MTDD
--- NOTE | 2018-01-10 14:08 | PN ---
DATE OF SERVICE: 01/07/18 SUBJECTIVE: The patient was admitted with COPD exacerbation and right upper lobe multilobular pneumonia. The patient has a history of lung cancer. He is on the radiation therapy . Coughing and congestion is better. No fever or chills. REVIEW OF SYSTEMS: CONSTITUTIONAL: No fever, no chills. HEENT: Normal. ENDOCRINE: No weight gain, no weight loss. CVS: No angina symptoms. No CHF symptoms. No palpitations. No atypical chest pain for CAD. No shortness of breath. No PND, no orthopnea. RESPIRATORY: No cough, no hemoptysis. GI: No nausea, no vomiting. No abdominal pain. : No hematuria. No polyuria. MUSCULOSKELETAL: No joint swelling. PSYCHIATRIC: Not anxious. No depression. No suicidal thoughts. No homicidal thoughts. SKIN: Intact. No rash. PHYSICAL EXAMINATION: V/S: Blood pressure 122/62, respiratory rate 20, heart rate 81, temperature 96.4 and saturation 98%. HEENT: Normocephalic, atraumatic. Mucosa dry. Pallor positive. No icterus. NECK: Supple. No JVD, no carotid bruit. No lymphadenopathy. LUNGS: Decreased and basilar crackles. No rales or rhonchi. HEART: S1, S2 normal. No S3. No murmur, gallop or regurgitation. ABDOMEN: Soft, nontender. Bowel sounds active. No rigidity. No rebound or guarding. No CVA tenderness. EXTREMITIES: No pedal edema. No clubbing or cyanosis MUSCULOSKELETAL: No joint swelling. NEUROLOGIC: Awake, alert, oriented times three. No focal deficit. LYMPHATIC: No lymph nodes palpable. SKIN: Intact. LABS: WBC 3.76, hgb 9.6, hct 28.2, plt count 130, sodium 132, potassium 4.4, chloride 101, bicarb 26, BUN 216, creatinine 0.69, glucose 111. ASSESSMENT: 1. COPD exacerbation secondary to the community acquired pneumonia 2. Lung cancer doing the chemo and radiation 3. Anxiety disorder 4. Depression 5. Kidney mass, under evaluation PLAN: 1. Continue Rocephin, Azithromycin, DUO NEBS and Solu-Medrol 2. Daily I&O's TIME SPENT: More than 35 minutes MTDD
--- NOTE | 2018-01-25 08:33 | DS ---
DATE OF SERVICE: 01/10/18 FINAL DIAGNOSIS: 1. Community acquired pneumonia right upper lobe 2. Pancytopenia 3. Lung cancer on chemo and radiation 4. Renal mass, needing further evaluation 5. Anemia, occult blood test is negative 6. Anxiety 7. Depression DISCHARGE INSTRUCTIONS: Discharge the patient to the [facility] under the care of Dr. Rolle. Continue the current medication Azactam IV and breathing treatments and steroids. MEDICATIONS AT DISCHARGE: Aspirin Lantus Lipitor Breo Ellipta Altace Amiodarone Pantoprazole Cartia XT Metformin Glipizide Buspirone Zofran Xopenex [place] Symbicort Chlordiazepoxide SMOKING: Current everyday smoker, light tobacco smoker DISEASE SPECIFIC EDUCATION: Lung Cancer Pneumonia Antibiotics use and probiotics been discussed Verbalized understanding HOSPITAL COURSE: Damion Kasper who is a 67 year old male was seen in the office for anxiety from being on the chemo therapy and radiation came to the office and was seen by me in the office on the 01/06/18. The patient had a fever of 100.9 and he was having some cough and congestion. I suggested hospitalization in review of currently on chemotherapy. The patient was then admitted directly to the hospital. Started on Rocephin, breathing treatments and steroids. CT chest showed in the increasing consolidation on the right both in the upper and lower lobe consistent with atelectasis and probably pneumonia. Increasing right pleural effusion volume. DUO NEBS, Solu-Medrol and Accu-checks with the coverage was given. The patient's WBC dropped to 1.94 and 1.93. We did follow the neutropenic precaution on the patient. Shows the neutropenia lower 4.93 and 1.5. We did put him in isolation just to be on the safety side. Antibiotic changed to the Azactam. As the patient was stable at given time I did not call Dr. Rolle. The patient didn't have any fever or chills, afebrile. Started feeling better and today we did call to Dr. Rolle and asked what we should do as I am leaving the town tomorrow. Dr. Rolle was courteous enough to accept the patient and we transferred the patient to the [facility] for further management of pneumonia. TIME SPENT: MORE THAN 65 MINUTES MTDD
== END 2018-01-10 11:40 | DRG 194 ==
LOC: UNDOADMIN 12:07 → MEDSURG B 12:07 → MEDSURG A 12:07
PROVIDERS: ADMIT Emergency Medicine; ATTEND Emergency Medicine
DX: J18.9 Pneumonia, unspecified organism (principal); D61.818 Other pancytopenia; C34.90 Malignant neoplasm of unspecified part of unspecified bronchus or lung; K57.92 Diverticulitis of intestine, part unspecified, without perforation or abscess without bleeding; N28.89 Other specified disorders of kidney and ureter; D64.9 Anemia, unspecified; F41.8 Other specified anxiety disorders; Z92.21 Personal history of antineoplastic chemotherapy; Z92.3 Personal history of irradiation; E11.9 Type 2 diabetes mellitus without complications; E78.5 Hyperlipidemia, unspecified; I10 Essential (primary) hypertension
CPT/HCPCS: 36415; 80053; 81001; 82272; 82550; 82607; 82728; 82746; 82962; 83540; 83550; 83605; 84145; 84466; 84484; 85007; 85025; 85045; 87040; 93005; 93010; 94640

== ENCOUNTER 2018-01-06 12:59 | Outpatient (CLI) ==
[2018-01-06 12:36] VITALS: BMI 28.0
== END 2018-01-06 13:00 | disposition home or self-care (01) ==
LOC: LAB 12:59
PROVIDERS: ATTEND Emergency Medicine
DX: R05 Cough (principal)
CPT/HCPCS: 87502

== ENCOUNTER 2018-01-10 11:43 | Outpatient (CLI) | END 2018-01-10 11:44 | disposition short-term general hospital (02) | LOC: AMBL 11:43 | PROVIDERS: ATTEND Internal Medicine | DX: R04.2 Hemoptysis (principal); C34.90 Malignant neoplasm of unspecified part of unspecified bronchus or lung; R68.89 Other general symptoms and signs ==

== ENCOUNTER 2018-02-25 16:57 | Inpatient (IN) ==
[2018-02-25 17:33] VITALS: BMI 28.8
[2018-02-25] MEDS ORDERED: NON-FORMULARY MEDICATION (Ondansetron Hcl [Zofran] 8 MG) PO PRN (17:37)
[2018-02-25] MEDS: PROTONIX IV IVP SCH (19:06)
[2018-02-25] MEDS: NORCO 7.5-325 PO SCH ×2 (19:06→22:49)
[2018-02-25] MEDS: SODIUM CHLORIDE 1,000 ML IV SCH (19:07)
--- NOTE | 2018-02-25 19:08 | CT ---
EXAM: CT abdomen pelvis without intravenous contrast 02/25/2018. Sagittal and coronal reformatted i mages obtained HISTORY: Lower gastrointestinal bleeding. COMPARISON: 10/08/2017 FINDINGS: Partially visualized pleural effusion at the right lung base. This appears moderate in si ze. There is right basilar consolidation which may represent atelectasis and/or pneumonia. The liver, gallbladder and adrenal glands show no acute abnormality. Exophytic high density mass with in the left kidney is again identified. This was characterized on MRI performed 09/14/2017. Please refer to prior MRI report for further evaluation. The spleen and pancreas show no acute abnormality. There is no bowel obstruction. Small bowel is normal in caliber. The appendix is normal. Unremarka ble urinary bladder. There is suggestion of mild mucosal thickening of the distal descending colon, sigmoid colon and rect um. This may represent a distal colitis. No free air, free fluid or abscess. Chronic degenerative disc disease most severe at L2-L3 and L3-L4. IMPRESSION: 1. Right pleural effusion with overlying consolidation. 2. High density exophytic lesion at the superior aspect of the left kidney. This was described on M RI form 09/14/2017. Please refer to prior MR report for further discussion. 3. Mild mucosal thickening of the distal descending colon, sigmoid colon and rectum. There is surro unding edema. This may represent colitis. Neoplasm cannot be excluded on the current study. 4. Additional findings as discussed above. 5. Technically limited examination due to the lack of intravenous contrast.
--- NOTE | 2018-02-25 19:25 | CT ---
EXAM: CT chest without intravenous contrast 02/25/2018. Sagittal and coronal reformatted images obt ained HISTORY: Cancer COMPARISON: 01/06/2018 FINDINGS: The heart size appears stable. No pericardial effusion. Right-sided pleural effusion appears similar to the prior study. There is a rounded area of consolida tion within the posterior right upper lobe which appears similar to the prior study. This extends to the level of the right hilum. There is complete atelectasis/consolidation of the right middle lobe. Partially resolved right perihilar soft tissue density/infiltrate. Stable consolidation overlying the right pleural effusion. Left chest port well positioned. Mediastinal lymphadenopathy appears similar to the prior study. Narrowing of multiple airways at the level of the right hilum. IMPRESSION: 1. Gross stable right pleural effusion. 2. Rounded consolidation at the posterior upper lobe is grossly stable. 3. Partial resolution of right perihilar soft tissue density. 4. Stable mediastinal and hilar lymphadenopathy. 5. Mass effect at the level of right hilum. Narrowing of multiple right-sided airways. 6. Complete atelectasis of the right middle lobe.
[2018-02-25] MEDS ORDERED: XOPENEX 1.25 MG NEB SCH (21:00)
[2018-02-25] MEDS: LANTUS SUBCUT SCH (21:44)
[2018-02-25] MEDS: AMBIEN PO SCH (21:44)
[2018-02-25] MEDS ORDERED: ROCEPHIN 1 GM in SODIUM CHLORIDE 50 ML IV SCH (22:30)
[2018-02-25] MEDS ORDERED: ROCEPHIN ONE (22:45)
[2018-02-25] MEDS: FLAGYL PO SCH (22:49)
[2018-02-26] MEDS: NORCO 7.5-325 PO SCH ×6 (03:18→21:13)
[2018-02-26] MEDS: HUMULIN R SUBCUT PRN ×2 (06:05→20:15)
[2018-02-26] MEDS: FLAGYL PO SCH ×3 (06:05→20:14)
[2018-02-26] MEDS ORDERED: ZOFRAN TAB PO PRN (07:23)
[2018-02-26] MEDS ORDERED: NON-FORMULARY MEDICATION (Metformin Hcl [Metformin Hcl] 1,000 MG) PO SCH (08:00)
[2018-02-26] MEDS ORDERED: NON-FORMULARY MEDICATION (Glipizide [Glipizide] 10 MG) PO SCH (08:00)
[2018-02-26] MEDS ORDERED: AMBIEN PO SCH (09:00)
[2018-02-26] MEDS ORDERED: SYMBICORT 160-4.5 MCG INHALER IH SCH (09:00)
[2018-02-26] MEDS ORDERED: RAMIPRIL 5 MG PO SCH (09:00)
[2018-02-26] MEDS: PROTONIX IV IVP SCH (10:27)
[2018-02-26] MEDS: ALTACE PO SCH (10:27)
[2018-02-26] MEDS: SYMBICORT 160-4.5 MCG INHALER IH SCH ×2 (10:27→20:18)
[2018-02-26] MEDS: GLUCOPHAGE PO SCH ×2 (10:27→17:14)
[2018-02-26] MEDS: COLACE PO SCH ×2 (10:28→20:14)
[2018-02-26] MEDS: CARDIZEM CD PO SCH (10:28)
[2018-02-26] MEDS: LIPITOR PO SCH (10:28)
[2018-02-26] MEDS: ASPIRIN CHEWABLE PO SCH (10:28)
[2018-02-26] MEDS: GLUCOTROL PO SCH ×2 (10:28→17:13)
[2018-02-26] MEDS: XOPENEX 1.25 MG NEB SCH ×2 (14:03→20:55)
[2018-02-26] MEDS ORDERED: PROTONIX PO SCH (17:00)
[2018-02-26] MEDS: AMBIEN PO SCH (20:15)
[2018-02-26] MEDS: LANTUS SUBCUT SCH (20:15)
[2018-02-26] MEDS ORDERED: ROCEPHIN 1 GM in SODIUM CHLORIDE 50 ML IV SCH (21:00)
[2018-02-27] MEDS: SODIUM CHLORIDE 1,000 ML IV SCH ×3 (00:19→21:16)
[2018-02-27] MEDS: NORCO 7.5-325 PO SCH ×6 (01:32→21:16)
[2018-02-27] MEDS: FLAGYL PO SCH ×3 (05:02→21:15)
[2018-02-27] MEDS: XOPENEX 1.25 MG NEB SCH ×3 (06:00→19:55)
[2018-02-27] MEDS: COLACE PO SCH ×2 (09:34→21:15)
[2018-02-27] MEDS: GLUCOPHAGE PO SCH ×2 (09:34→16:57)
[2018-02-27] MEDS: GLUCOTROL PO SCH ×2 (09:34→16:58)
[2018-02-27] MEDS: CARDIZEM CD PO SCH (09:35)
[2018-02-27] MEDS: PROTONIX IV IVP SCH (09:35)
[2018-02-27] MEDS: ALTACE PO SCH (09:35)
[2018-02-27] MEDS: ASPIRIN CHEWABLE PO SCH (09:35)
[2018-02-27] MEDS: LIPITOR PO SCH (09:35)
[2018-02-27] MEDS: SYMBICORT 160-4.5 MCG INHALER IH SCH ×2 (09:35→21:16)
[2018-02-27] MEDS: HUMULIN R SUBCUT PRN ×2 (11:55→16:59)
[2018-02-27] MEDS: LANTUS SUBCUT SCH (21:15)
[2018-02-27] MEDS: AMBIEN PO SCH (21:15)
[2018-02-28] MEDS: NORCO 7.5-325 PO SCH ×6 (02:10→22:04)
[2018-02-28] MEDS: SODIUM CHLORIDE 1,000 ML IV SCH (02:12)
[2018-02-28] MEDS: XOPENEX 1.25 MG NEB SCH ×3 (05:07→19:30)
[2018-02-28] MEDS: FLAGYL PO SCH ×3 (05:41→20:40)
[2018-02-28] MEDS: HUMULIN R SUBCUT PRN ×3 (05:41→20:44)
[2018-02-28] MEDS: ALTACE PO SCH (09:55)
[2018-02-28] MEDS: COLACE PO SCH (09:56)
[2018-02-28] MEDS: ASPIRIN CHEWABLE PO SCH (09:56)
[2018-02-28] MEDS: CARDIZEM CD PO SCH (09:56)
[2018-02-28] MEDS: GLUCOTROL PO SCH ×2 (09:57→18:27)
[2018-02-28] MEDS: GLUCOPHAGE PO SCH ×2 (09:57→18:26)
[2018-02-28] MEDS: LIPITOR PO SCH (09:58)
[2018-02-28] MEDS: SYMBICORT 160-4.5 MCG INHALER IH SCH ×2 (09:59→20:41)
[2018-02-28] MEDS: PROTONIX IV IVP SCH (09:59)
[2018-02-28] MEDS: AMBIEN PO SCH (20:40)
[2018-02-28] MEDS: LANTUS SUBCUT SCH (20:41)
[2018-03-01] MEDS: SODIUM CHLORIDE 1,000 ML IV SCH ×2 (00:46→22:48)
[2018-03-01] MEDS: NORCO 7.5-325 PO SCH ×6 (02:18→21:15)
[2018-03-01] MEDS: FLAGYL PO SCH ×3 (05:09→21:15)
[2018-03-01] MEDS: XOPENEX 1.25 MG NEB SCH ×3 (05:31→22:18)
[2018-03-01] MEDS: ASPIRIN CHEWABLE PO SCH (10:08)
[2018-03-01] MEDS: ALTACE PO SCH (10:11)
[2018-03-01] MEDS: CARDIZEM CD PO SCH (10:12)
[2018-03-01] MEDS: GLUCOPHAGE PO SCH ×2 (10:12→17:36)
[2018-03-01] MEDS: GLUCOTROL PO SCH ×2 (10:13→17:36)
[2018-03-01] MEDS: LIPITOR PO SCH (10:13)
[2018-03-01] MEDS: SYMBICORT 160-4.5 MCG INHALER IH SCH ×2 (10:14→21:16)
[2018-03-01] MEDS: PROTONIX IV IVP SCH (10:20)
[2018-03-01] MEDS: HUMULIN R SUBCUT PRN ×2 (13:45→17:58)
--- NOTE | 2018-03-01 15:41 | HP ---
DATE OF SERVICE: 02/25/18 CHIEF COMPLAINT: Lower GI bleed. HISTORY OF PRESENT ILLNESS: This is a 68-year-old male with a history of lung cancer and has been taking chemotherapy and radiation by Dr. Freitas in [place]. The patient was having diarrhea for 3 to 4 days and yesterday when he had a bout of diarrhea, the noticed a lot of blood in the stools. He did have an accident and it was in his undergarments. At that time, the patient was also feeling some lightheadedness so the patient's called me and at that time the patient was directly admitted to the hospital for acute lower GI bleed and lightheadedness. The patient did have one more bowel movement when he was admitted to the hospital which was definitely bloody. REVIEW OF SYSTEMS: CONSTITUTIONAL: Weakness, tiredness. No fever, no chills. HEENT: Normal. ENDOCRINE: No weight gain; no weight loss. CVS: Shortness of breath. No chest pain. No PND, no orthopnea. No PND, no orthopnea. RESPIRATORY: No cough, no congestion. No hemoptysis. GI: Diarrhea. Abdominal cramping. No nausea, no vomiting. No melena. : No hematuria. No polyuria. MUSCULOSKELETAL: No joint swelling. PSYCHIATRIC: Depression, anxiety. No suicidal thoughts. No homicidal thoughts. SKIN: Intact, no open lesions. PAST MEDICAL HISTORY: Coronary artery disease Heart murmur Carotid stenosis status post surgery Hypertension COPD GERD Diverticulitis Diverticulosis Lung cancer on chemotherapy and radiation DJD spine Osteoarthritis PAST SURGICAL HISTORY: Lower lung surgery Right knee surgery Carotid endarterectomy Tonsillectomy PERSONAL HISTORY: He use to smoke, now quit. , lives with . FAMILY HISTORY: Significant for diabetes, heart problem. MEDICATIONS: (HOME) Aspirin Lantus Pantoprazole Metformin Glipizide Zofran Xopenex [place] Symbicort Diltiazem Ramipril Atorvastatin Zolpidem ALLERGIES: MEPERIDINE PHYSICAL EXAMINATION: V/S: BP 114/68, respiratory rate 18, heart rate 84, temperature 99, saturation 95. HEENT: Atraumatic, normocephalic. No scleral icterus. Pallor positive. Mucosa dry. NECK: Supple. No JVD, no bruit. No lymphadenopathy. No thyromegaly. HEART: S1, S2 normal. No murmur. No cyanosis or clubbing. No ascites. LUNGS: Basilar crackles present. ABDOMEN: Soft, nontender. Left side of upper chest - port is intact. Bowel sounds are active. No CVA tenderness. No rigidity or guarding. EXTREMITIES: No pedal edema. No cyanosis or clubbing MUSCULOSKELETAL: Normal joints, no swelling. NEUROLOGIC: Normal. SKIN: Intact; no open lesions. LYMPHATIC: No lymph nodes palpable. LABS: Hemoglobin 7.9, hematocrit 24.9, bicarb 9.45, platelet count 149, sodium 138, potassium 4.0, chloride 102, bicarb 23, BUN 11, creatinine 0.79. ASSESSMENT: 1. ACUTE LOWER GI BLEED 2. LUNG CANCER ON RADIATION AND CHEMOTHERAPY 3. DIABETES MELLITUS 4. HYPERTENSION 5. DYSLIPIDEMIA 6. OSTEOARTHRITIS 7. DJD SPINE 8. ANEMIA PLAN: 1. Admit the patient to regular floor. 2. CBC, CMP today and daily. 3. Cardiac enzymes and troponin. 4. Type and crossmatch 3 units and hold. If hemoglobin drops below 7 we will go ahead and transfuse. 5. CT abdomen and pelvis. 6. CT chest. 7. Continue home medication. 8. Accu-Cheks for coverage. TIME SPENT: MORE THAN 70 minutes MTDD
--- NOTE | 2018-03-01 15:49 | PN ---
DATE OF SERVICE: 02/26/18 SUBJECTIVE: The patient did drop the hemoglobin to 7.9 to 7.3 then 6.9. He was started on blood transfusion, part of unit is getting now. He is still having bowel movements that are bloody. He has some shortness of breath. REVIEW OF SYSTEMS: CONSTITUTIONAL: No fever, no chills. HEENT: Normal. ENDOCRINE: No weight gain, no weight loss. CVS: No angina symptoms. No CHF symptoms. No palpitations. No atypical chest pain for CAD. Shortness of breath. No PND, no orthopnea. RESPIRATORY: No cough, no hemoptysis. GI: Bloody bowel movement. No nausea, no vomiting. No abdominal pain. : No hematuria. No polyuria. MUSCULOSKELETAL: No joint swelling. PSYCHIATRIC: Not anxious. No depression. No suicidal thoughts. No homicidal thoughts. SKIN: Intact. No rash. PHYSICAL EXAMINATION: V/S: BP 124/64, respiratory rate 16, heart rate 74, temperature 98.0, saturation 98. HEENT: Normocephalic, atraumatic. Mucosa dry. Pallor positive. No icterus. NECK: Supple. No JVD, no carotid bruit. No lymphadenopathy. LUNGS: Basilar crackles. HEART: S1, S2 normal. No S3. No murmur, gallop or regurgitation. ABDOMEN: Soft, nontender. Bowel sounds active. No rigidity. No rebound or guarding. No CVA tenderness. EXTREMITIES: No pedal edema. No clubbing or cyanosis MUSCULOSKELETAL: No joint swelling. NEUROLOGIC: The patient is awake, alert, oriented times three. No focal deficit. LYMPHATIC: No lymph nodes palpable. SKIN: Intact. LABS: Hemoglobin 6.9, hematocrit 42.1. Sodium 138, potassium 4.0, chloride 102, bicarb 23, BUN 11, creatinine 0.79, glucose 175. ASSESSMENT: 1. ACUTE LOWER GI BLEED NEEDING BLOOD TRANSFUSION 2. LUNG CANCER ON CHEMOTHERAPY AND RADIATION 3. DIABETES MELLITUS 4 HYPERTENSION 5. DYSLIPIDEMIA PLAN: 1. Continue Rocephin for pneumonia on CT scan 2. IV fluids 42 mL/hr 3. Continue to monitor H & H 4. Flagyl 5. CT abdomen did show questionable colitis 6. Will continue Flagyl and Rocephin 7. Continue to monitor the H & H TIME SPENT: More than 35 minutes. MTDD
[2018-03-01] MEDS: AMBIEN PO SCH (21:15)
[2018-03-01] MEDS: LANTUS SUBCUT SCH (21:16)
[2018-03-02] MEDS: NORCO 7.5-325 PO SCH ×6 (01:46→21:05)
[2018-03-02] MEDS: XOPENEX 1.25 MG NEB SCH ×3 (04:39→20:40)
[2018-03-02] MEDS: FLAGYL PO SCH ×3 (05:39→21:05)
--- NOTE | 2018-03-02 06:41 | PN ---
DATE OF SERVICE: 02/27/18 SUBJECTIVE: The patient is still having bowel movements with blood in it but no nausea or vomiting. No chest pain. No PND or orthopnea. REVIEW OF SYSTEMS: CONSTITUTIONAL: No fever, no chills. HEENT: Normal. ENDOCRINE: No weight gain, no weight loss. CVS: No angina symptoms. No CHF symptoms. No palpitations. No atypical chest pain for CAD. No shortness of breath. No PND, no orthopnea. RESPIRATORY: No cough, no hemoptysis. GI: Bloody bowel movements. No nausea, no vomiting. No abdominal pain. : No hematuria. No polyuria. MUSCULOSKELETAL: No joint swelling. PSYCHIATRIC: Not anxious. No depression. No suicidal thoughts. No homicidal thoughts. SKIN: Intact. No rash. PHYSICAL EXAMINATION: V/S: BP 127/73, respiratory rate 16, heart rate 83, temperature 98.1, saturation 97 on 2L. HEENT: Normocephalic, atraumatic. Mucosa dry. Pallor positive. No icterus. NECK: Supple. No JVD, no carotid bruit. No lymphadenopathy. LUNGS: Decreased basilar crackles. Clear to auscultation. No rales or rhonchi. HEART: S1, S2 normal. No S3. No murmur, gallop or regurgitation. ABDOMEN: Soft, nontender. Bowel sounds active. No rigidity. No rebound or guarding. No CVA tenderness. EXTREMITIES: No pedal edema. No clubbing or cyanosis. MUSCULOSKELETAL: No joint swelling. NEUROLOGIC: Awake, alert, oriented times three. No focal deficit. LYMPHATIC: No lymph nodes palpable. SKIN: Intact. LABS: White count 8.66, hemoglobin 9.3, hematocrit 28.6, platelet count 161. Sodium 140, potassium 4.3, chloride 103, bicarb 25, BUN 9, creatinine 0.72, glucose 113. ASSESSMENT: 1. LOWER GI BLEED NEEDING 3 UNITS BLOOD TRANSFUSION, MOST LIKELY FROM COLITIS PER CT SCAN. 2. BIBASILAR INFILTRATES AND PNEUMONIA. 3. HISTORY OF LUNG CANCER ON CHEMOTHERAPY AND RADIATION. 4. DIABETES MELLITUS. PLAN: 1. H & H 2. Accu-Cheks with coverage 3. Metformin 4. Daily I & O's TIME SPENT: More than 35 minutes MTDD
--- NOTE | 2018-03-02 06:48 | PN ---
DATE OF SERVICE: 02/28/18 SUBJECTIVE: The patient had two large bowel movements which were bloody. No fever, no chills. The patient's is in the room. She stated she canceled all his chemo and radiation appointments for this week. Service Delivery Management Consultant/oncologist is aware of the patient's hospitalization. REVIEW OF SYSTEMS: CONSTITUTIONAL: No fever, no chills. HEENT: Normal. ENDOCRINE: No weight gain, no weight loss. CVS: No angina symptoms. No CHF symptoms. No palpitations. No atypical chest pain for CAD. No shortness of breath. No PND, no orthopnea. RESPIRATORY: No cough, no hemoptysis. GI: No nausea, no vomiting. No abdominal pain. : No hematuria. No polyuria. MUSCULOSKELETAL: No joint swelling. PSYCHIATRIC: Not anxious. No depression. No suicidal thoughts. No homicidal thoughts. SKIN: Intact. No rash. PHYSICAL EXAMINATION: V/S: BP 131/74, respiratory rate 20, heart rate 84, temperature 98.5, saturation 97 on 2L. HEENT: Normocephalic, atraumatic. Mucosa dry. Pallor positive. No icterus. NECK: Supple. No JVD, no carotid bruit. No lymphadenopathy. LUNGS: Basilar crackles. No rales or rhonchi. HEART: S1, S2 normal. No S3. No murmur, gallop or regurgitation. ABDOMEN: Soft, nontender. Bowel sounds active. No rigidity. No rebound or guarding. No CVA tenderness. EXTREMITIES: No pedal edema. No clubbing or cyanosis. MUSCULOSKELETAL: No joint swelling. NEUROLOGIC: Awake, alert, oriented times three. No focal deficit. LYMPHATIC: No lymph nodes palpable. SKIN: Intact. LABS: Hemoglobin 9.9, hematocrit 29.9. Sodium 140, potassium 4.3, chloride 103, bicarb 25, BUN 9, creatinine 0.72, glucose 130. ASSESSMENT: 1. LOWER GI BLEED, NEEDING 3 UNITS BLOOD TRANSFUSION, CONTINUOUS BLEEDING 2. COLITIS PER CT SCAN 3. PARTIALLY RESOLVED RIGHT PERIHILAR SOFT TISSUE DENSITY/INFILTRATE ON CT OF CHEST. 4. HISTORY OF LUNG CANCER ON CHEMOTHERAPY AND RADIATION 5. DIABETES MELLITUS 6. ANXIETY DISORDER PLAN: 1. Continue Flagyl 2. Continue to monitor H & H q.8hr 3. Out of bed to chair 4. Activity as tolerated TIME SPENT: More than 35 minutes MTDD
[2018-03-02] MEDS: PROTONIX IV IVP SCH (09:48)
[2018-03-02] MEDS: SOLU-MEDROL 125 MG IVP SCH ×3 (09:49→21:05)
[2018-03-02] MEDS: CARDIZEM CD PO SCH (09:53)
[2018-03-02] MEDS: ALTACE PO SCH (09:53)
[2018-03-02] MEDS: GLUCOTROL PO SCH ×2 (09:54→18:33)
[2018-03-02] MEDS: GLUCOPHAGE PO SCH ×2 (09:54→18:34)
[2018-03-02] MEDS: LIPITOR PO SCH (09:55)
[2018-03-02] MEDS: SYMBICORT 160-4.5 MCG INHALER IH SCH ×2 (09:57→21:08)
[2018-03-02] MEDS: HUMULIN R SUBCUT PRN ×3 (12:45→21:06)
--- NOTE | 2018-03-02 14:09 | PN ---
DATE OF SERVICE: 03/01/18 SUBJECTIVE: The patient is still having the blood diarrhea. REVIEW OF SYSTEMS: CONSTITUTIONAL: No fever, no chills. HEENT: Normal. ENDOCRINE: No weight gain, no weight loss. CVS: No angina symptoms. No CHF symptoms. No palpitations. No atypical chest pain for CAD. Some shortness of breath. No PND, no orthopnea. RESPIRATORY: Cough and congestion, no hemoptysis. GI: No nausea, no vomiting. No abdominal pain. Did have bright red blood today. : No hematuria. No polyuria. MUSCULOSKELETAL: No joint swelling. PSYCHIATRIC: Not anxious. No depression. No suicidal thoughts. No homicidal thoughts. SKIN: Intact. No rash. PHYSICAL EXAMINATION: V/S: Blood pressure 118/74, respiratory rate 16, heart rate 82, temperature 97.8 and saturation is 96%. HEENT: Normocephalic, atraumatic. Mucosa dry. Pallor positive. No icterus. NECK: Supple. No JVD, no carotid bruit. No lymphadenopathy. LUNGS: Decreased and basilar crackles. Clear to auscultation. No rales or rhonchi. HEART: S1, S2 normal. No S3. No murmur, gallop or regurgitation. ABDOMEN: Soft, nontender. Bowel sounds active. No rigidity. No rebound or guarding. No CVA tenderness. EXTREMITIES: No pedal edema. No clubbing or cyanosis MUSCULOSKELETAL: No joint swelling. NEUROLOGIC: Awake, alert, oriented times three. No focal deficit. LYMPHATIC: No lymph nodes palpable. SKIN: Intact. LABS: Hgb 10.1, hct 31.4, sodium 140, potassium 4.3, chloride 103, bicarb 25, BUN 9, creatinine 0.72 and glucose 113. ASSESSMENT: 1. Acute rectal bleed 2. Colitis 3. History of lung cancer on chemo and radiation 4. Diabetes 5. Hypertension 6. Anxiety 7. Depression PLAN: 1. Accu-checks with coverage 2. Flagyl 3. Continue to monitor the H&H 4. IV fluids TIME SPENT: More than 35 minutes MTDD
[2018-03-02] MEDS: SODIUM CHLORIDE 1,000 ML IV SCH ×2 (18:42→21:10)
[2018-03-02] MEDS: AMBIEN PO SCH (21:05)
[2018-03-02] MEDS: LANTUS SUBCUT SCH (21:06)
[2018-03-03] MEDS: NORCO 7.5-325 PO SCH ×6 (01:47→21:13)
[2018-03-03] MEDS: XOPENEX 1.25 MG NEB SCH ×3 (05:02→21:45)
[2018-03-03] MEDS: SOLU-MEDROL 125 MG IVP SCH ×3 (05:04→21:13)
[2018-03-03] MEDS: FLAGYL PO SCH ×3 (05:04→21:13)
[2018-03-03] MEDS: HUMULIN R SUBCUT PRN ×4 (06:26→21:13)
--- NOTE | 2018-03-03 08:30 | PN ---
DATE OF SERVICE: 03/02/18 SUBJECTIVE: The patient is still having the bloody bowel movements. As per patient, patient says that the amount of the blood coming is less but every time she is going to the bathroom she can see the blood. The patient's is in the room, discussed about the case in detail and verbalized understanding. REVIEW OF SYSTEMS: CONSTITUTIONAL: No fever, no chills. HEENT: Normal. ENDOCRINE: No weight gain, no weight loss. CVS: No angina symptoms. No CHF symptoms. No palpitations. No atypical chest pain for CAD. No shortness of breath. No PND, no orthopnea. RESPIRATORY: Cough and congestion, no hemoptysis. GI: No nausea, no vomiting. No abdominal pain. : No hematuria. No polyuria. MUSCULOSKELETAL: No joint swelling. PSYCHIATRIC: Not anxious. No depression. No suicidal thoughts. No homicidal thoughts. SKIN: Intact. No rash. PHYSICAL EXAMINATION: V/S: Blood pressure 152/81, respiratory rate 20, heart rate 97.7 with saturation 94 on the room air. HEENT: Normocephalic, atraumatic. Mucosa dry. Pallor positive. No icterus. NECK: Supple. No JVD, no carotid bruit. No lymphadenopathy. LUNGS: Decreased and clear to auscultation. No rales or rhonchi. HEART: S1, S2 normal. No S3. No murmur, gallop or regurgitation. ABDOMEN: Left sided port is stable and intact. No signs of infection at the site of the port. Soft, nontender. Bowel sounds active. No rigidity. No rebound or guarding. No CVA tenderness. EXTREMITIES: No pedal edema. No clubbing or cyanosis MUSCULOSKELETAL: No joint swelling. NEUROLOGIC: Awake, alert, oriented times three. No focal deficit. LYMPHATIC: No lymph nodes palpable. SKIN: Intact. dry. No open lesions. LABS: WBC 6.96, hgb 10.4, hct 33.1, plt count 222, sodium 141, potassium 4.1, chloride 103, bicarb 27, BUN 8, creatinine 0.72 and glucose 108. ASSESSMENT: 1. Rectal bleed, needing three units of PRBC. CAT scan showing significant colitis, negative for the C-diff. The patient is on the Flagyl. 2. History of lung cancer on chemo and radiation 3. Diabetes 4. Hypertension 5. Dyslipidemia 6. Anxiety 7. Depression 8. History of lower lumbar surgery 9. Right knee surgery PLAN: 1. Continue to monitor the H&H, in case the bleeding does not stop by tomorrow which usually the colitis and the diverticular bleed are most likely should stop spontaneously. Given history of the radiation and chemotherapy. If the bleeding doesn't stop I will be talking to the [facility]/Oncologist in [place] and possibly transfer the patient there for possible colonoscopy. Sometimes patient may need a cauterization of the bleeding spot which was discussed with patient and patient's . They are agreeable with the plan. 2. Flagyl, continue 3. DUO NEBS 4. Regular diet 5. IV fluids TIME SPENT: More than 35 minutes MTDD
[2018-03-03] MEDS: PROTONIX IV IVP SCH (08:34)
[2018-03-03] MEDS: CARDIZEM CD PO SCH (08:34)
[2018-03-03] MEDS: LIPITOR PO SCH (08:34)
[2018-03-03] MEDS: GLUCOPHAGE PO SCH ×2 (08:34→17:37)
[2018-03-03] MEDS: SYMBICORT 160-4.5 MCG INHALER IH SCH ×2 (08:35→21:21)
[2018-03-03] MEDS: GLUCOTROL PO SCH ×2 (08:35→17:37)
[2018-03-03] MEDS: ALTACE PO SCH (08:35)
[2018-03-03] MEDS: SODIUM CHLORIDE 1,000 ML IV SCH (21:10)
[2018-03-03] MEDS: AMBIEN PO SCH (21:12)
[2018-03-03] MEDS: LANTUS SUBCUT SCH (21:16)
[2018-03-04] MEDS: NORCO 7.5-325 PO SCH ×3 (02:19→10:00)
[2018-03-04] MEDS: XOPENEX 1.25 MG NEB SCH (04:40)
[2018-03-04] MEDS: SOLU-MEDROL 125 MG IVP SCH (06:03)
[2018-03-04] MEDS: FLAGYL PO SCH (06:04)
[2018-03-04 06:17] VITALS: BP 122/67; TEMP 97.4
[2018-03-04] MEDS: HUMULIN R SUBCUT PRN (06:38)
[2018-03-04] MEDS: LIPITOR PO SCH (09:58)
[2018-03-04] MEDS: GLUCOPHAGE PO SCH (09:59)
[2018-03-04] MEDS: ALTACE PO SCH (09:59)
[2018-03-04] MEDS: CARDIZEM CD PO SCH (09:59)
[2018-03-04] MEDS: GLUCOTROL PO SCH (09:59)
[2018-03-04] MEDS: SYMBICORT 160-4.5 MCG INHALER IH SCH (10:00)
[2018-03-04] MEDS: PROTONIX IV IVP SCH (10:02)
--- NOTE | 2018-03-06 22:31 | PCM.HOSP ---
- Initial Hospital Care [id number] 70 Minutes Bedside ([id number]): 02/25 - Subsequent Care [id number] 25 Minutes per Day ([id number]): 03/03 [id number] 35 Minutes per Day ([id number]): 02/26. 4/. 4/. 4/. / - Hospital Discharge [id number] More than 30 Minutes ([id number]): 03/04
--- NOTE | 2018-03-15 09:39 | PN ---
DATE OF SERVICE: 03/03/18 SUBJECTIVE: The patient was admitted with rectal bleeding. He states that finally the bleeding has stopped. He did have three bowel movements with regular brown stools. Still no abdominal pain, nausea or vomiting. He has some cough and congestion. Shortness of breath with exertion. Otherwise, no fever, chills, PND or orthopnea. REVIEW OF SYSTEMS: CONSTITUTIONAL: No fever, no chills. HEENT: Normal. ENDOCRINE: No weight gain, no weight loss. CVS: No angina symptoms. No CHF symptoms. No palpitations. No atypical chest pain for CAD. No shortness of breath. No PND, no orthopnea. RESPIRATORY: Cough and congestion, no hemoptysis. GI: No nausea, no vomiting. No abdominal pain. : No hematuria. No polyuria. MUSCULOSKELETAL: No joint swelling. PSYCHIATRIC: Not anxious. No depression. No suicidal thoughts. No homicidal thoughts. SKIN: Intact. No rash. PHYSICAL EXAMINATION: V/S: Blood pressure 143/78, respiratory rate 20, heart rate 63, temperature 97.6 , saturation 97 on 2 liters. HEENT: Normocephalic, atraumatic. Mucosa dry. Pallor positive. No icterus. NECK: Supple. No JVD, no carotid bruit. No lymphadenopathy. LUNGS: Decreased basilar crackles. No rales or rhonchi. HEART: S1, S2 normal. No S3. No murmur, gallop or regurgitation. ABDOMEN: Soft, nontender. Bowel sounds active. No rigidity. No rebound or guarding. No CVA tenderness. EXTREMITIES: No pedal edema. No clubbing or cyanosis MUSCULOSKELETAL: No joint swelling. NEUROLOGIC: Awake, alert, oriented times three. No focal deficit. LYMPHATIC: No lymph nodes palpable. SKIN: Left side of the chest is a port-a-cath that is in place. LABS: White count is 6.96, hemoglobin 10.4, hematocrit 33.1, platelet count 222 , sodium 141, potassium 4.2, chloride 103, bicarb 27, BUN 8, creatinine 0.72, glucose 108. ASSESSMENT: 1. ACUTE LOWER GI BLEED FROM COLITIS NEEDING 3 UNITS OF PACKED RED BLOOD CELLS 2. ACUTE COLITIS, NON C-DIFF 3. BIBASILAR PNEUMONIA INFILTRATION 4. HISTORY OF LUNG CANCER ON CHEMO AND RADIATION 5. DIABETES 6. HYPERTENSION 7. DYSLIPIDEMIA 8. ANXIETY 9. DEPRESSION PLAN: 1. Continue breathing treatments. 2. Continue to monitor the H & H and stools. 3. Out of bed to chair. 4. Will follow up with the patient in daily rounds. TIME SPENT: More than 25 minutes MTDD
--- NOTE | 2018-04-08 11:02 | DS ---
DATE OF SERVICE: 03/04/18 FINAL DIAGNOSIS: 1. RECTAL BLEEDING NEEDING 2 UNITS OF BLOOD TRANSFUSION 2. ACUTE COLITIS, NON C-DIFF 3. BIBASILAR PNEUMONIA PER CT SCAN 4. HISTORY OF LUNG CANCER ON CHEMO AND RADIATION 5. DIABETES 6. HYPERTENSION 7. DYSLIPIDEMIA 8. ANXIETY 9. DEPRESSION DISCHARGE INSTRUCTIONS: 1. Discharge the patient home 2. The patient to return to see Dr. Simmons at the [facility] on 04/12 at 8:30 a.m. 3. Keep all appointments with your oncologist MEDICATIONS AT DISCHARGE: Continue Flagyl 500 mg q.8hr for 6 days Prednisone 10 mg twice a day for 5 days Miralax 17 gm p.o. daily Continue the rest of the home medications which are: Lipitor Diltiazem Glipizide Lantus Metformin Altace Ambien Amiodarone Symbicort [place] Xopenex Zofran Protonix NEW PRESCRIPTIONS: Cipro 250 mg take one tablet by mouth twice daily for 3 days Colace 100 mg take one capsule by mouth twice daily Miralax 17 gm mix with at least 8 ox water, take daily (over the counter medication) DIET INSTRUCTIONS: Consistent carbs, high fiber and cardiac, Accu-Checks for the coverage ACTIVITY: Get plenty of rest at home. Gradually increase your activity level according to your toleration SMOKING: Former smoker DISEASE SPECIFIC EDUCATION: Rectal bleeding needing blood transfusion Antibiotic with diarrhea been discussed, verbalized understanding HOSPITAL COURSE: This is a 68-year-old male with diagnosis of lung cancer and receiving chemo and radiation. He came from the home stating that he have large rounds of rectal bleeding. Given patient's history of colon cancer and rectal bleeding, the patient was admitted to the hospital. Initial hemoglobin was 7.9 then dropped to 6.9. Type and screen 3 units and transfuse [address] abdomen and pelvis showed colitis, started on Flagyl and Rocephin. Prednisone was also given. Stool for C. diff was ordered, which was negative. With the transfusion, hemoglobin went up to 10.1. Gradually the bleeding was getting better. He did not have any problems, was up and about walking. Hemoglobin and hematocrit were finally stable. Ova and parasites were also tested which any Cryptosporidium or Cyclospora weren't seen. Hospital stay was uneventful as the patient's rectal bleeding spontaneously resolved and hemoglobin has been steady 10.4, 9.8 and 9.3. At that time, the patient was discharged home. TIME SPENT: MORE THAN 65 MINUTES MTDD
== END 2018-03-04 10:43 | disposition home or self-care (01) | DRG 377 ==
LOC: MEDSURG B 16:57
PROVIDERS: ADMIT Emergency Medicine; ATTEND Emergency Medicine
PROC: 30243N1 Transfusion of Nonautologous Red Blood Cells into Central Vein, Percutaneous Approach (ICD-10-PCS; principal; 2018-02-26)
PROC: 30243N1 Transfusion of Nonautologous Red Blood Cells into Central Vein, Percutaneous Approach (ICD-10-PCS; 2018-02-26)
PROC: 30243N1 Transfusion of Nonautologous Red Blood Cells into Central Vein, Percutaneous Approach (ICD-10-PCS; 2018-02-26)
DX: K62.5 Hemorrhage of anus and rectum (principal); J18.9 Pneumonia, unspecified organism; C34.90 Malignant neoplasm of unspecified part of unspecified bronchus or lung; K52.9 Noninfective gastroenteritis and colitis, unspecified; R10.9 Unspecified abdominal pain; R06.02 Shortness of breath; R91.8 Other nonspecific abnormal finding of lung field; I10 Essential (primary) hypertension; E11.9 Type 2 diabetes mellitus without complications; E78.5 Hyperlipidemia, unspecified; M19.90 Unspecified osteoarthritis, unspecified site; M47.9 Spondylosis, unspecified; F41.8 Other specified anxiety disorders; Z87.891 Personal history of nicotine dependence; Z79.84 Long term (current) use of oral hypoglycemic drugs; Z79.899 Other long term (current) drug therapy
CPT/HCPCS: 36415; 36430; 80053; 82947; 82962; 85008; 85014; 85018; 85025; 85610; 86850; 86900; 86922; 87177; 87205; 87493; 94640; 99223; 99232; 99233; 99239

== ENCOUNTER 2018-03-22 09:27 | Inpatient (IN) ==
[2018-03-22 10:13] VITALS: BMI 28.2
[2018-03-22] MEDS: SODIUM CHLORIDE 1,000 ML IV SCH (10:33)
[2018-03-22] MEDS ORDERED: TYLENOL PO PRN (15:18)
[2018-03-22] MEDS ORDERED: NORCO 7.5-325 PO SCH (15:30)
--- NOTE | 2018-03-22 16:50 | CT ---
EXAM: CT Abdomen without contrast. CT Pelvis without contrast. HISTORY: Abdominal pain, rectal bleeding. COMPARISON: 02/25/2018. TECHNIQUE: Multiple axial images of the abdomen and pelvis were obtained without intravenous contras t. Images were reformatted in the sagittal and coronal plane. FINDINGS: Please note that evaluation of the abdominal and pelvic structures is limited due to lack of intravenous contrast. Right pleural effusion again noted. Calcified granulomatous changes seen in the lung bases. Degenerative changes present in the spine. Liver, gallbladder, pancreas, spleen, and adrenal glands demonstrate normal contour. No calcified re nal stones or hydronephrosis identified. Ovoid soft tissue density along the lateral left kidney is s table measuring 2.7 x 2.4 cm on axial image 34. Refer to previous MRI report dated 09/14/2017 for de tails. The small bowel is normal in course and caliber without evidence for obstruction or inflammatory proc ess. The appendix is normal. Diverticulosis noted. There may be mild rectal wall thickening althou gh no significant inflammation identified Urinary bladder is unremarkable. No free fluid or free air identified. Atherosclerotic calcifications present. IMPRESSION: 1. Possible mild proctitis. 2. Colonic diverticulosis. 3. Redemonstration of right pleural effusion.
[2018-03-22] MEDS: GLUCOPHAGE PO SCH (16:51)
[2018-03-22] MEDS: HUMULIN R SUBCUT PRN ×2 (17:03→20:47)
[2018-03-22] MEDS: NORCO 7.5-325 PO SCH ×2 (18:51→20:26)
[2018-03-22] MEDS: CORDARONE PO SCH (20:26)
[2018-03-22] MEDS: LANTUS SUBCUT SCH (20:27)
[2018-03-22] MEDS: GLUCOTROL PO SCH (20:27)
[2018-03-22] MEDS ORDERED: NON-FORMULARY MEDICATION (Glipizide [Glipizide] 10 MG) PO SCH (21:00)
[2018-03-22] MEDS ORDERED: NON-FORMULARY MEDICATION (Metformin Hcl [Metformin Hcl] 1,000 MG) PO SCH (21:00)
[2018-03-22] MEDS: DUONEB NEB SCH (21:30)
[2018-03-23] MEDS: NORCO 7.5-325 PO SCH ×6 (03:28→20:40)
[2018-03-23] MEDS: DUONEB NEB SCH ×3 (05:38→21:40)
[2018-03-23] MEDS ORDERED: CITRATE OF MAGNESIA PO STA ×2 (09:06→13:06)
[2018-03-23] MEDS: SYMBICORT 160-4.5 MCG INHALER IH SCH (09:16)
[2018-03-23] MEDS: LIPITOR PO SCH (09:18)
[2018-03-23] MEDS: GLUCOTROL PO SCH ×2 (09:18→20:40)
[2018-03-23] MEDS: GLUCOPHAGE PO SCH ×2 (09:18→16:44)
[2018-03-23] MEDS: CORDARONE PO SCH ×2 (09:19→20:39)
[2018-03-23] MEDS: CARDIZEM CD PO SCH (09:19)
[2018-03-23] MEDS: SODIUM CHLORIDE 1,000 ML IV SCH (09:25)
--- NOTE | 2018-03-23 11:13 | HP ---
DATE OF SERVICE: 03/22/18 CHIEF COMPLAINT: Rectal bleed. HISTORY OF PRESENT ILLNESS: This is a 68 year old male with history of lung cancer, status post radiation and on chemotherapy and history of lower GI bleed. The patient started having blood in the stools since yesterday. Had one big bought yesterday evening and today morning he started having every time he has a small bowel movement it was bloody and he did have one normal bowel movement but did follow with the bloody bowel movements 2-3 times. The patient came to the office and was admitted to the hospital in review of recent rectal bleed and need for blood transfusion. REVIEW OF SYSTEMS: CONSTITUTIONAL: No fever, no chills. Weakness and tiredness. HEENT: Normal. ENDOCRINE: No weight gain; no weight loss. CVS: No chest pain. No PND, no orthopnea. Shortness of breath. No PND, no orthopnea. RESPIRATORY: Cough,Congestion. No hemoptysis. GI: No nausea, no vomiting. Abdominal pain. No melena. Rectal bleed. : No hematuria. No polyuria. MUSCULOSKELETAL: No joint swelling. PSYCHIATRIC: Not anxious. No depression. No suicidal thoughts. No homicidal thoughts. SKIN: Intact, no open lesions. PAST MEDICAL HISTORY: Hypertension Dyslipidemia Osteoarthritis COPD Lung cancer status post radiation on chemotherapy Diverticulosis GERD History of rectal bleed Nicotine use PAST SURGICAL HISTORY: Lower lumbar surgery Right knee surgery Cataract surgery PERSONAL HISTORY: The patient is and lives with the . No more smoking since November. Family History is significant for diabetes, heart problems and colon cancer. MEDICATIONS: Pantoprazole Zofran Xopenex [place] Symbicort Diltiazem Altace Ambien Miralax Lipitor Lantus Metformin Glipizide Amiodarone ALLERGIES: Demerol PHYSICAL EXAMINATION: V/S: blood pressure 109/66, respiratory rate 18, heart rate 73, temperature 98.7 with saturation is 98 on 2 liters. HEENT: Atraumatic, normocephalic. No scleral icterus. Pallor positive. Mucosa dry. NECK: Supple. No JVD, no bruit. No lymphadenopathy. No thyromegaly. HEART: S1, S2 normal. No murmur. No cyanosis or clubbing. No ascites. LUNGS: Decreased and clear to auscultation. No rales or rhonchi. ABDOMEN: Soft, nontender. Bowel sounds are active. No CVA tenderness. No rigidity or guarding. EXTREMITIES: No pedal edema. No cyanosis or clubbing MUSCULOSKELETAL: Normal joints, no swelling. NEUROLOGIC: The patient is awake and alert. SKIN: Intact; no open lesions. LYMPHATIC: No lymph nodes palpable. LABS: WBC 4.48, hgb 10.5, hct 31.8, plt count 99, sodium 134, potassium 4.5, chloride 101, bicarb 25, BUN 15, creatinine 0.72 and glucose 163. ASSESSMENT: 1. Rectal bleed 2. History of diverticulosis and Colitis 3. Lung cancer, status post radiation and now on chemo 4. Depression 5. Diabetes 6. Osteoarthritis 7. DJD spine PLAN: 1. Admit patient to the regular floor 2. Protonix 40mg PO twice a day 3. H&H Q 12 hours 4. Type and cross match three units and hold 5. Accu-checks with coverage 6. Continue the rest of the home medication TIME SPENT: MORE THAN 70 minutes MTDD
[2018-03-23] MEDS: HUMULIN R SUBCUT PRN (12:59)
[2018-03-23] MEDS ORDERED: PROTONIX PO SCH (17:00)
[2018-03-23] MEDS: LANTUS SUBCUT SCH (20:40)
[2018-03-24] MEDS: NORCO 7.5-325 PO SCH ×3 (00:30→09:22)
[2018-03-24] MEDS: DUONEB NEB SCH (04:33)
[2018-03-24] MEDS: HUMULIN R SUBCUT PRN (05:46)
[2018-03-24 06:22] VITALS: TEMP 98.6
[2018-03-24] MEDS: GLUCOTROL PO SCH (09:19)
[2018-03-24] MEDS: CORDARONE PO SCH (09:21)
[2018-03-24] MEDS: CARDIZEM CD PO SCH (09:23)
[2018-03-24] MEDS: GLUCOPHAGE PO SCH (09:23)
[2018-03-24] MEDS: LIPITOR PO SCH (09:24)
[2018-03-24 09:54] VITALS: BP 143/74
[2018-03-24] MEDS: SYMBICORT 160-4.5 MCG INHALER IH SCH (10:09)
--- NOTE | 2018-04-21 15:26 | PN ---
DATE OF SERVICE: 03/23/18 SUBJECTIVE: The patient was admitted with rectal bleeding. Recently three units of PRBC was given. The patient is feeling better and did not have a bowel movement yet. Small hard stool noticed there was small amount of the blood. REVIEW OF SYSTEMS: CONSTITUTIONAL: No fever, no chills. HEENT: Normal. ENDOCRINE: No weight gain, no weight loss. CVS: No angina symptoms. No CHF symptoms. No palpitations. No atypical chest pain for CAD. No shortness of breath. No PND, no orthopnea. RESPIRATORY: No cough, no hemoptysis. GI: No nausea, no vomiting. No abdominal pain. : No hematuria. No polyuria. MUSCULOSKELETAL: No joint swelling. PSYCHIATRIC: Not anxious. No depression. No suicidal thoughts. No homicidal thoughts. SKIN: Intact. No rash. PHYSICAL EXAMINATION: V/S: Blood pressure 127/65, respiratory rate 20, heart rate 80, temperature 98.5 with saturation 97%. HEENT: Normocephalic, atraumatic. Mucosa dry. NECK: Supple. No JVD, no carotid bruit. No lymphadenopathy. LUNGS: Clear to auscultation. No rales or rhonchi. HEART: S1, S2 normal. No S3. No murmur, gallop or regurgitation. Left sided portacath is normal. ABDOMEN: Soft, nontender. Bowel sounds active. No rigidity. No rebound or guarding. No CVA tenderness. EXTREMITIES: No cyanosis, clubbing or pedal edema. MUSCULOSKELETAL: No joint swelling. NEUROLOGIC: Awake, alert, oriented times three. No focal deficit. LYMPHATIC: No lymph nodes palpable. SKIN: Intact. LABS: WBC 2.86, hgb 9.2, hct 28.3, plt count 76, sodium 137, potassium 4.1, chloride 103, bicarb 26, BUN 14, creatinine 0.71 and glucose 125. ASSESSMENT: 1. Rectal bleeding, steady hgb 2. Possible mild proctitis as per the CAT scan 3. Lung cancer on chemotherapy and radiation 4. High density renal mass, left kidney 5. CAD 6. Hypertension 7. COPD 8. Diabetes 9. Depression 10.Anxiety PLAN: 1. Continue the IV fluids 2. H&H monitoring 3. Out of bed to chair activity as tolerated 4. Accu-check with coverage TIME SPENT: More than 35 minutes MTDD
--- NOTE | 2018-05-19 14:14 | DS ---
DATE OF SERVICE: 04/05/18 FINAL DIAGNOSIS: 1. ACUTE RECTAL BLEEDING, HEMOGLOBIN HAS BEEN STABLE - HE DID NOT HAVE A BLOOD TRANSFUSION THIS TIME 2. CT ABDOMEN AND PELVIS SHOWS PROCTITIS, COLONIC DIVERTICULOSIS 3. RECENT RECTAL BLEED IN JANUARY WITH 2 UNITS OF PRBCs GIVEN 4. LUNG CANCER ON CHEMO AND RADIATION 5. RULE OUT KIDNEY MASS UNDER EVALUATION 6. CORONARY ARTERY DISEASE 7. HYPERTENSION 8. DYSLIPIDEMIA 9. COPD 10. DIABETES TYPE 2 11. 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 CAROTID ENDARTERECTOMY 14. TOBACCO USE, PATIENT IS EVERY DAY SMOKER DISCHARGE INSTRUCTIONS: Followup appointment with Dr. Simmons at [facility] 04/12/18 at 8:30 a.m. Continue to followup with oncologist for radiation. MEDICATIONS AT DISCHARGE: Keflex 500 twice a day times five days Prednisone 10 mg twice a day times five days Lipitor Cardia Glipizide Lantus 10 units Metformin Pantoprazole Ramipril Ambien Amiodarone Symbicort Hydrocodone NEW PRESCRIPTIONS: Cipro 250 mg one tablet by mouth twice daily for 3 days Colace 100 mg one capsule by mouth twice daily Miralax 17 gm mix with at least 8 oz water, take daily (over the counter medication) DIET INSTRUCTIONS: Cardiac and diabetic diet. ACTIVITY: Get plenty of rest at home. Gradually increse your activity level according to your toleration. SMOKING: N/A DISEASE SPECIFIC EDUCATION: Rectal bleeding and diverticular bleeding discussed. Need for blood transfusion discussed, verbalized understanding. HOSPITAL COURSE: This 68-year-old gentleman was recently in the hospital in January for acute rectal bleeding needing almost 3 units of PRBC. He came to the office complaining of having bright red blood in the stool. CT abdomen and pelvis showed proctitis and diverticulosis. Hemoglobin was 10.5, started on IV fluids, typed and crossmatched, screened 2 units and put on hold. Protonix twice a day was given. Accu-Checks with coverage was done. Hemoglobin was steady 10.5, 9.2 and 9.3. Gradually blood was disappearing from the stools. The patient was having regular bowel movements with no blood in the stool. He is up and about walking. No complications during the hospital stay. As the patient was doing fine, feeling better, he was discharged home. TIME SPENT: MORE THAN 65 MINUTES MTDD
== END 2018-03-24 10:51 | disposition home or self-care (01) | DRG 394 ==
LOC: MEDSURG B 09:27
PROVIDERS: ADMIT Emergency Medicine; ATTEND Emergency Medicine
DX: K62.89 Other specified diseases of anus and rectum (principal); C34.90 Malignant neoplasm of unspecified part of unspecified bronchus or lung; K57.32 Diverticulitis of large intestine without perforation or abscess without bleeding; Z72.0 Tobacco use; N28.89 Other specified disorders of kidney and ureter; I25.10 Atherosclerotic heart disease of native coronary artery without angina pectoris; I10 Essential (primary) hypertension; E78.5 Hyperlipidemia, unspecified; J44.9 Chronic obstructive pulmonary disease, unspecified; E11.9 Type 2 diabetes mellitus without complications; Z79.84 Long term (current) use of oral hypoglycemic drugs; M19.90 Unspecified osteoarthritis, unspecified site; M47.9 Spondylosis, unspecified
CPT/HCPCS: 36415; 80053; 82962; 85007; 85025; 86850; 86900; 87081; 94640; 99223; 99233; 99239

== ENCOUNTER 2018-03-30 10:05 | Inpatient (IN) ==
[2018-03-30 11:00] VITALS: BMI 27.6
[2018-03-30] MEDS ORDERED: TYLENOL PO PRN (11:29)
[2018-03-30] MEDS: DUONEB NEB SCH ×3 (12:19→23:49)
[2018-03-30] MEDS: NORCO 7.5-325 PO SCH ×4 (12:21→23:48)
[2018-03-30] MEDS: SODIUM CHLORIDE 1,000 ML IV SCH (12:23)
[2018-03-30] MEDS: GLUCOTROL PO SCH (16:43)
[2018-03-30] MEDS: GLUCOPHAGE PO SCH (16:43)
[2018-03-30] MEDS: HUMULIN R SUBCUT PRN ×2 (16:58→20:47)
[2018-03-30] MEDS: LANTUS SUBCUT SCH (20:48)
[2018-03-30] MEDS ORDERED: NON-FORMULARY MEDICATION (Glipizide [Glipizide] 10 MG) PO SCH (21:00)
[2018-03-30] MEDS ORDERED: NON-FORMULARY MEDICATION (Metformin Hcl [Metformin Hcl] 1,000 MG) PO SCH (21:00)
[2018-03-30] MEDS: AMBIEN PO SCH (21:35)
[2018-03-31] MEDS: SODIUM CHLORIDE 1,000 ML IV SCH ×2 (00:44→15:04)
[2018-03-31] MEDS: HUMULIN R SUBCUT PRN ×4 (05:52→21:29)
[2018-03-31] MEDS: NORCO 7.5-325 PO SCH ×5 (05:53→21:02)
[2018-03-31] MEDS: PROTONIX PO SCH (05:53)
[2018-03-31] MEDS: DUONEB NEB SCH ×4 (05:56→23:03)
[2018-03-31] MEDS: LIPITOR PO SCH (08:56)
[2018-03-31] MEDS: ALTACE PO SCH (08:56)
[2018-03-31] MEDS: GLUCOPHAGE PO SCH ×2 (08:57→16:59)
[2018-03-31] MEDS: CARDIZEM CD PO SCH (08:57)
[2018-03-31] MEDS ORDERED: RAMIPRIL 5 MG PO SCH (09:00)
[2018-03-31] MEDS: MIRALAX PO SCH (09:00)
[2018-03-31] MEDS: GLUCOTROL PO SCH ×2 (11:00→16:58)
[2018-03-31] MEDS: VANCOCIN PO SCH ×2 (12:33→18:32)
[2018-03-31] MEDS: LANTUS SUBCUT SCH (21:02)
[2018-03-31] MEDS: AMBIEN PO SCH (21:02)
[2018-04-01] MEDS: VANCOCIN PO SCH ×3 (00:07→11:43)
[2018-04-01] MEDS: NORCO 7.5-325 PO SCH ×7 (00:07→23:21)
[2018-04-01] MEDS: SODIUM CHLORIDE 1,000 ML IV SCH ×3 (01:58→17:15)
[2018-04-01] MEDS: DUONEB NEB SCH ×4 (04:59→22:40)
[2018-04-01] MEDS: PROTONIX PO SCH (05:45)
[2018-04-01] MEDS: HUMULIN R SUBCUT PRN ×3 (05:53→20:03)
[2018-04-01] MEDS: GLUCOPHAGE PO SCH ×2 (09:38→17:15)
[2018-04-01] MEDS: MIRALAX PO SCH (09:38)
[2018-04-01] MEDS: ALTACE PO SCH (09:39)
[2018-04-01] MEDS: LIPITOR PO SCH (09:39)
[2018-04-01] MEDS: GLUCOTROL PO SCH ×2 (09:39→17:14)
[2018-04-01] MEDS: CARDIZEM CD PO SCH (09:40)
[2018-04-01] MEDS: DULCOLAX RC PRN (10:24)
--- NOTE | 2018-04-01 18:23 | DI ---
EXAM: Single-view abdomen HISTORY: Distension of the COMPARISON: None. FINDINGS: There is a right pleural effusion. Colonic fecal stasis is seen in the transverse colon. Air is seen in the descending and rectosigmoid colon. IMPRESSION: Colonic fecal stasis transverse colon. Right pleural effusion
[2018-04-01] MEDS: AMBIEN PO SCH (20:02)
[2018-04-01] MEDS: CIPRO PO SCH (20:03)
[2018-04-01] MEDS: LANTUS SUBCUT SCH (20:03)
[2018-04-02] MEDS: SODIUM CHLORIDE 1,000 ML IV SCH ×2 (03:55→16:53)
[2018-04-02] MEDS: NORCO 7.5-325 PO SCH ×5 (04:43→20:34)
[2018-04-02] MEDS: DUONEB NEB SCH ×4 (04:50→22:10)
[2018-04-02] MEDS: CIPRO PO SCH ×2 (05:34→20:34)
[2018-04-02] MEDS: PROTONIX PO SCH (05:35)
[2018-04-02] MEDS: HUMULIN R SUBCUT PRN ×3 (05:35→21:21)
[2018-04-02] MEDS: GLUCOTROL PO SCH ×2 (08:32→16:55)
[2018-04-02] MEDS: LIPITOR PO SCH (08:32)
[2018-04-02] MEDS: GLUCOPHAGE PO SCH ×2 (08:32→16:55)
[2018-04-02] MEDS: CARDIZEM CD PO SCH (08:32)
[2018-04-02] MEDS: ALTACE PO SCH (08:33)
[2018-04-02] MEDS: MIRALAX PO SCH (08:33)
[2018-04-02] MEDS: AMBIEN PO SCH (20:34)
[2018-04-02] MEDS: LANTUS SUBCUT SCH (21:29)
[2018-04-03] MEDS: NORCO 7.5-325 PO SCH ×6 (00:42→19:30)
[2018-04-03] MEDS: DUONEB NEB SCH ×4 (04:36→22:40)
[2018-04-03] MEDS: SODIUM CHLORIDE 1,000 ML IV SCH ×2 (05:35→18:09)
[2018-04-03] MEDS: CIPRO PO SCH ×2 (05:35→20:39)
[2018-04-03] MEDS: HUMULIN R SUBCUT PRN ×4 (05:35→20:41)
[2018-04-03] MEDS: PROTONIX PO SCH (05:35)
[2018-04-03] MEDS: GLUCOTROL PO SCH ×2 (08:29→16:46)
[2018-04-03] MEDS: GLUCOPHAGE PO SCH ×2 (08:29→16:46)
[2018-04-03] MEDS: CARDIZEM CD PO SCH (08:29)
[2018-04-03] MEDS: LIPITOR PO SCH (08:29)
[2018-04-03] MEDS: ALTACE PO SCH (08:29)
[2018-04-03] MEDS: MIRALAX PO SCH (08:30)
[2018-04-03] MEDS ORDERED: CITRATE OF MAGNESIA PO STA (09:28)
[2018-04-03] MEDS: DULCOLAX RC PRN (19:31)
[2018-04-03] MEDS: LANTUS SUBCUT SCH (20:39)
[2018-04-03] MEDS: AMBIEN PO SCH (20:39)
[2018-04-04] MEDS: NORCO 7.5-325 PO SCH ×6 (00:51→19:36)
[2018-04-04] MEDS: DUONEB NEB SCH ×4 (04:50→20:05)
[2018-04-04] MEDS: PROTONIX PO SCH (06:01)
[2018-04-04] MEDS: CIPRO PO SCH ×2 (06:01→20:53)
[2018-04-04] MEDS: HUMULIN R SUBCUT PRN ×3 (06:01→20:53)
[2018-04-04] MEDS: SODIUM CHLORIDE 1,000 ML IV SCH ×2 (06:16→19:36)
[2018-04-04] MEDS: MIRALAX PO SCH (08:03)
[2018-04-04] MEDS: ALTACE PO SCH (08:04)
[2018-04-04] MEDS: CARDIZEM CD PO SCH (08:05)
[2018-04-04] MEDS: GLUCOPHAGE PO SCH ×2 (08:05→16:45)
[2018-04-04] MEDS: GLUCOTROL PO SCH ×2 (08:06→16:44)
[2018-04-04] MEDS: LIPITOR PO SCH (08:06)
--- NOTE | 2018-04-04 10:46 | CT ---
Exam: CT of the abdomen and pelvis without contrast History: Constipation and bloating Technique: [address] of the abdomen and pelvis with multiplanar reformations FINDINGS: Comparison CT dated 03/22/2018. Again, pleural fluid noted on the right. No significant l iver abnormality. The adrenals, pancreas and spleen are unremarkable. The stomach and hiatus are unre markable.The gallbladder appears normal. Stable exophytic hyperdense cyst on the left measuring 2.4 x 2.7 cm. Stable exophytic small cyst on the right. Moderate to large right, transverse and left co lonic stool retention with retained contrast. The cecum measures 7.5 cm diameter. Atherosclerotic miguel a cification of the aorta. The appendix is normal. Normal small intestine loops. No inflammation of the mesentery or retroperitoneum. Colonic diverticulosis of the sigmoid. The sigmoid is relatively nondistended. No obvious transitio n. Normal pelvic genitourinary structures. No pelvic fat inflammation. No acute abnormality of the skeleton. Impression: 1. Progressive palacio colonic stool retention since prior study although with relative decompression of the sigmoid. No obvious obstructive transition. 2. No inflammatory changes of the abdomen or pelvis 3. Stable bilateral renal cyst 4. Stable right pleural fluid
[2018-04-04] MEDS ORDERED: CITRATE OF MAGNESIA PO STA (11:23)
[2018-04-04] MEDS: DULCOLAX RC PRN (17:45)
[2018-04-04] MEDS: AMBIEN PO SCH (20:53)
[2018-04-04] MEDS: LANTUS SUBCUT SCH (20:54)
[2018-04-05] MEDS: NORCO 7.5-325 PO SCH ×3 (00:36→08:23)
[2018-04-05] MEDS: DUONEB NEB SCH (05:00)
[2018-04-05 05:06] VITALS: BP 121/71; TEMP 98.1
[2018-04-05] MEDS: CIPRO PO SCH (05:48)
[2018-04-05] MEDS: PROTONIX PO SCH (05:48)
[2018-04-05] MEDS: HUMULIN R SUBCUT PRN (05:53)
[2018-04-05] MEDS: MIRALAX PO SCH (08:21)
[2018-04-05] MEDS: CARDIZEM CD PO SCH (08:22)
[2018-04-05] MEDS: GLUCOPHAGE PO SCH (08:22)
[2018-04-05] MEDS: ALTACE PO SCH (08:22)
[2018-04-05] MEDS: GLUCOTROL PO SCH (08:23)
[2018-04-05] MEDS: LIPITOR PO SCH (08:23)
--- NOTE | 2018-04-05 15:20 | PN ---
DATE OF SERVICE: 04/04/18 SUBJECTIVE: The patient was still not able to pass the stool. CT of the abdomen and pelvis done which did show moderate amount of the stool in the transverse colon and it is not been coming out. The patient is feeling discomfort and feels like passing bowel movement but nothing is coming out. Having blood stools, Jenifer the nurse did witness the blood stools. Hgb is stable. REVIEW OF SYSTEMS: CONSTITUTIONAL: No fever, no chills. HEENT: Normal. ENDOCRINE: No weight gain, no weight loss. CVS: No angina symptoms. No CHF symptoms. No palpitations. No atypical chest pain for CAD. No shortness of breath. No PND, no orthopnea. RESPIRATORY: No cough, no hemoptysis. GI: No nausea, no vomiting. No abdominal pain. : No hematuria. No polyuria. MUSCULOSKELETAL: No joint swelling. PSYCHIATRIC: Not anxious. No depression. No suicidal thoughts. No homicidal thoughts. SKIN: Intact. No rash. PHYSICAL EXAMINATION: V/S: Blood pressure 124/73, respiratory rate 20, heart rate 75, temperature 98.6 with saturation 98 on 2 liters. HEENT: Normocephalic, atraumatic. Mucosa dry. Pallor positive, No icterus. NECK: Supple. No JVD, no carotid bruit. No lymphadenopathy. LUNGS: Clear to auscultation. No rales or rhonchi. HEART: S1, S2 normal. No S3. No murmur, gallop or regurgitation. Left sided chest Portacath in place. ABDOMEN: Soft, nontender. Bowel sounds active. No rigidity. No rebound or guarding. No CVA tenderness. EXTREMITIES: No pedal edema. No clubbing or cyanosis MUSCULOSKELETAL: No joint swelling. NEUROLOGIC: Awake, alert, oriented times three. No focal deficit. LYMPHATIC: No lymph nodes palpable. SKIN: Intact. LABS: WBC 5.99, hgb 9.6, hct 29.5, plt count 108, sodium 138, potassium 4.5, chloride 104, bicarb 23, BUN 14, creatinine 0.79 and glucose 201. ASSESSMENT: 1. Constipation/Obstipation 2. Rectal bleeding, stable hgb 3. Lung cancer, on chemo therapy 4. Left sided chest Portacath 5. Anemia 6. History of blood transfusions 7. Kidney mass under evaluation 8. Depression 9. Anxiety 10.Diabetes Mellitus 11.COPD PLAN: 1. Mag Citrate 2. Accu-checks with coverage 3. Cipro continued 4. IV fluids 5. Daily I&O's 6. Will follow the patient in daily rounds. TIME SPENT: More than 35 minutes MTDD
--- NOTE | 2018-05-05 13:30 | PN ---
DATE OF SERVICE: 04/01/18 SUBJECTIVE: The patient is admitted with rectal bleed. He had two bowel movements which were bloody. Did not have any drop in the blood count. Still having abdominal discomfort. No nausea, vomiting or diarrhea. REVIEW OF SYSTEMS: CONSTITUTIONAL: No fever, no chills. HEENT: Normal. ENDOCRINE: No weight gain, no weight loss. CVS: No angina symptoms. No CHF symptoms. No palpitations. No atypical chest pain for CAD. No shortness of breath. No PND, no orthopnea. RESPIRATORY: No cough, no hemoptysis. GI: Abdominal discomfort. No nausea, no vomiting. : No hematuria. No polyuria. MUSCULOSKELETAL: No joint swelling. PSYCHIATRIC: Not anxious. No depression. No suicidal thoughts. No homicidal thoughts. SKIN: Intact. No rash. PHYSICAL EXAMINATION: V/S: BP 139/77, respiratory rate 16, heart rate 88, temperature 98.2, saturation 97. HEENT: Normocephalic, atraumatic. Mucosa dry. Pallor positive. No icterus. NECK: Supple. No JVD, no carotid bruit. No lymphadenopathy. Left-sided horacio- cath is in place. No signs of infection. LUNGS: Clear to auscultation. No rales or rhonchi. HEART: S1, S2 normal. No S3. No murmur, gallop or regurgitation. ABDOMEN: Soft, nontender. Bowel sounds active. No rigidity. No rebound or guarding. No CVA tenderness. EXTREMITIES: No cyanosis, clubbing or pedal edema. MUSCULOSKELETAL: No joint swelling. NEUROLOGIC: Awake, alert, oriented times three. No focal deficit. LYMPHATIC: No lymph nodes palpable. SKIN: Intact. LABS: White count 6.11, hemoglobin 9.8, hematocrit 30.3, platelet count 78. Sodium 138 , potassium 4.5, chloride 104, bicarb 23, BUN 14, creatinine 0.79, glucose 209. ASSESSMENT: 1. RECTAL BLEED (STABLE HEMOGLOBIN) (POSITIVE OCCULT BLOOD TEST) 2. HISTORY OF LUNG CANCER ON CHEMOTHERAPY 3. RENAL CYST 4. COLITIS 5. DEPRESSION 6. DIABETES PLAN: 1. Continue to monitor H & H 2. Continue breathing treatments 3. Accu-Checks with the coverage 4. Stool culture grew Camphylobactor 5. Will start Ciprofloxacin TIME SPENT: More than 35 minutes MTDD
--- NOTE | 2018-05-05 13:40 | PN ---
DATE OF SERVICE: 04/02/18 SUBJECTIVE: The patient is admitted with rectal bleeding. Hemoglobin has been stable. He did have one bowel movement yesterday and this morning which had blood in it. He as not able to pass the bowel movements, still feels like he is constipated. REVIEW OF SYSTEMS: CONSTITUTIONAL: No fever, no chills. HEENT: Normal. ENDOCRINE: No weight gain, no weight loss. CVS: No angina symptoms. No CHF symptoms. No palpitations. No atypical chest pain for CAD. No shortness of breath. No PND, no orthopnea. RESPIRATORY: No cough, no hemoptysis. GI: No nausea, no vomiting. No abdominal pain. : No hematuria. No polyuria. MUSCULOSKELETAL: No joint swelling. PSYCHIATRIC: Not anxious. No depression. No suicidal thoughts. No homicidal thoughts. SKIN: Intact. No rash. PHYSICAL EXAMINATION: V/S: BP 139/77, respiratory rate 18, heart rate 100, temperature 98, saturation 97. HEENT: Normocephalic, atraumatic. Mucosa dry, pallor positive. No icterus. NECK: Supple. No JVD, no carotid bruit. No lymphadenopathy. LUNGS: Decreased entry. Clear to auscultation. No rales or rhonchi. HEART: S1, S2 normal. No S3. No murmur, gallop or regurgitation. ABDOMEN: Soft, nontender. Bowel sounds active. No rigidity. No rebound or guarding. No CVA tenderness. EXTREMITIES: No cyanosis, clubbing or pedal edema. MUSCULOSKELETAL: No joint swelling. NEUROLOGIC: Awake, alert, oriented times three. No focal deficit. LYMPHATIC: No lymph nodes palpable. SKIN: Intact. LABS: Hemoglobin 10.1, hematocrit 30.8. Sodium 138, potassium 4.5, chloride 104, bicarb 23, BUN 14, creatinine 0.79, glucose 201. ASSESSMENT: 1. Rectal bleed (stable hemoglobin) 2. History of colitis 3. Lung cancer on chemotherapy, status post radiation 4. Renal cyst 5. Diabetes 6. Hypertension PLAN: 1. Continue to monitor the H & H 2. Continue Ciprofloxacin 3. Will give Dulcolax 4. Will get KUB TIME SPENT: More than 35 minutes MTDD
--- NOTE | 2018-05-05 13:56 | PN ---
DATE OF SERVICE: 04/03/18 SUBJECTIVE: The patient still was not able to have a bowel movement, worried that he would bleed again. The patient had a KUB yesterday which did show transverse colon filled with stool. Still feels like bloating and passing some gas. REVIEW OF SYSTEMS: CONSTITUTIONAL: No fever, no chills. HEENT: Normal. ENDOCRINE: No weight gain, no weight loss. CVS: No angina symptoms. No CHF symptoms. No palpitations. No atypical chest pain for CAD. No shortness of breath. No PND, no orthopnea. RESPIRATORY: No cough, no hemoptysis. GI: Abdominal discomfort - bloating and gas. No nausea, no vomiting. : No hematuria. No polyuria. MUSCULOSKELETAL: No joint swelling. PSYCHIATRIC: Not anxious. No depression. No suicidal thoughts. No homicidal thoughts. SKIN: Intact. No rash. PHYSICAL EXAMINATION: V/S: BP 116/71, pulse 99, respiratory rarte 16, temperature 98.2, saturation 97. HEENT: Normocephalic, atraumatic. NECK: Supple. No JVD, no carotid bruit. No lymphadenopathy. LUNGS: Clear to auscultation. No rales or rhonchi. HEART: S1, S2 normal. No S3. No murmur, gallop or regurgitation. ABDOMEN: Soft, nontender. Bowel sounds active. No rigidity. No rebound or guarding. No CVA tenderness. EXTREMITIES: No cyanosis, clubbing or pedal edema. MUSCULOSKELETAL: No joint swelling. NEUROLOGIC: Awake, alert, oriented times three. No focal deficit. LYMPHATIC: No lymph nodes palpable. SKIN: Intact. LABS: White count 5.99, hemoglobin 9.6, hematocrit 26.5, platelet count 108. Sodium 138, potassium 4.5, chloride 104, bicarb 23, BUN 14, creatinine 0.79, glucose 201. ASSESSMENT: 1. RECTAL BLEED WITH HISTORY OF SEVERE COLITIS IN THE COLON POSITIVE FOR CAMPYLOBACTER INFECTION. 2. LUNG CANCER ON CHEMOTHERAPY. 3. DIABETES MELLITUS. 4. ANXIETY/DEPRESSION. 5. COPD. PLAN: 1. Will give Mag Citrate 10 mL 2. Up and about walking 3. Continue Ciprofloxacin 4. CBC, CMP in the morning TIME SPENT: More than 35 minutes MTDD
--- NOTE | 2018-05-25 09:51 | PN ---
DATE OF SERVICE: 03/30/18 SUBJECTIVE: The patient was admitted with rectal bleed. H&H dropped from 10.3 to 8.9. The patient's blood been screened for the blood group in case the bleeding continues and drops we will go ahead and transfuse the patient. REVIEW OF SYSTEMS: CONSTITUTIONAL: No fever, no chills. HEENT: Normal. ENDOCRINE: No weight gain, no weight loss. CVS: No angina symptoms. No CHF symptoms. No palpitations. No atypical chest pain for CAD. No shortness of breath. No PND, no orthopnea. RESPIRATORY: No cough, no hemoptysis. GI: No nausea, no vomiting. No abdominal pain. : No hematuria. No polyuria. MUSCULOSKELETAL: No joint swelling. PSYCHIATRIC: Not anxious. No depression. No suicidal thoughts. No homicidal thoughts. SKIN: Intact. No rash. PHYSICAL EXAMINATION: V/S: Blood pressure 117/69, respiratory rate 20, heart rate 97, temperature 98.9 with saturation 94%. HEENT: Normocephalic, atraumatic. Mucosa dry. Pallor positive. No icterus. NECK: Supple. No JVD, no carotid bruit. No lymphadenopathy. LUNGS: Clear to auscultation. No rales or rhonchi. HEART: S1, S2 normal. No S3. No murmur, gallop or regurgitation. ABDOMEN: Soft, nontender. Bowel sounds active. No rigidity. No rebound or guarding. No CVA tenderness. Left sided port cath is in place. EXTREMITIES: No cyanosis, clubbing or pedal edema. MUSCULOSKELETAL: No joint swelling. NEUROLOGIC: Awake, alert, oriented times three. No focal deficit. LYMPHATIC: No lymph nodes palpable. SKIN: Intact. LABS: WBC 6.36, hgb 8.9, hct 27.6, plt count 64, sodium 136, potassium 4.0, chloride 100, bicarb 26, BUN 17, creatinine 0.80, glucose 209. ASSESSMENT: 1. Rectal bleed 2. Colitis per CAT scan 3. Lung cancer 4. Renal mass 5. Diabetes 6. Depression 7. Osteoarthritis 8. DJD spine PLAN: 1. Continue to monitor the H&H 2. Will continue to followup with the patient in daily rounds. TIME SPENT: More than 35 minutes MTDD
--- NOTE | 2018-05-25 14:20 | DS ---
DATE OF SERVICE: 04/05/18 FINAL DIAGNOSIS: 1. Rectal bleed, stable hgb 2. History of colitis 3. Lung cancer on chemotherapy 4. Renal cyst 5. Diabetes 6. Hypertension 7. Possible colitis CT scan 8. Colonic diverticulosis 9. Three units of PRBC, February 13 10. CAD 11. DJD spine 12. Carotid endarterectomy DISCHARGE INSTRUCTIONS: Discharge the patient home. Followup in the [facility] within 5-7 days. Do the blood work before coming to the clinic. MEDICATIONS AT DISCHARGE: Amiodarone Lipitor Tegretol Cartia Glipizide Insulin Mobic Metformin Pantoprazole Altace Ambien Symbicort Lasix Hydrocodone Xopenex NEW PRESCRIPTIONS: Cipro 250mg twice a day for 3 days Colace Miralax DIET INSTRUCTIONS: Cardiac and healthy ACTIVITY: As tolerated. DISEASE SPECIFIC EDUCATION: New medications Followup Lower GI bleed HOSPITAL COURSE: Damion Kasper 68 year old gentleman came to the office with the lower GI bleed and abdominal pain with a history of a GI bleed and needing the blood transfusion the patient was admitted to the hospital. IV fluids was started and KUB ordered which showed colonic rectal transverse colon, progressive pancolonic stool retention seen in the CT scan of the abdomen and pelvis. The patient was monitored for H&H and did not drop below 9. Chemistries were stable. Stool for occult blood test was positive. Ova and parasites were negative. As the patient's hgb been stable and steady and did not have any constipation during the hospital he is being discharged home. TIME SPENT: MORE THAN 65 MINUTES MTDD
== END 2018-04-05 08:55 | disposition home or self-care (01) | DRG 378 ==
LOC: MEDSURG B 10:05
PROVIDERS: ADMIT Emergency Medicine; ATTEND Emergency Medicine
DX: K62.5 Hemorrhage of anus and rectum (principal); C34.90 Malignant neoplasm of unspecified part of unspecified bronchus or lung; K52.9 Noninfective gastroenteritis and colitis, unspecified; F17.210 Nicotine dependence, cigarettes, uncomplicated; N28.1 Cyst of kidney, acquired; E11.9 Type 2 diabetes mellitus without complications; Z79.4 Long term (current) use of insulin; Z79.84 Long term (current) use of oral hypoglycemic drugs; I10 Essential (primary) hypertension; K57.30 Diverticulosis of large intestine without perforation or abscess without bleeding; I25.10 Atherosclerotic heart disease of native coronary artery without angina pectoris; M47.9 Spondylosis, unspecified; K59.00 Constipation, unspecified; E78.5 Hyperlipidemia, unspecified
CPT/HCPCS: 36415; 80053; 82272; 82962; 85014; 85018; 85025; 86850; 86900; 87015; 87045; 87070; 87081; 87177; 87899; 93005; 93010; 94640; 99223; 99233; 99239

== ENCOUNTER 2018-06-10 11:14 | Outpatient (CLI) | END 2018-06-10 11:15 | disposition home or self-care (01) | LOC: RHC-LAB 11:14 | PROVIDERS: ATTEND Emergency Medicine | DX: E11.9 Type 2 diabetes mellitus without complications (principal); E78.5 Hyperlipidemia, unspecified; I10 Essential (primary) hypertension | CPT/HCPCS: 36415; 80053; 80061; 83036; 84443; 85025 ==

== ENCOUNTER 2018-07-15 11:06 | Outpatient (CLI) ==
--- NOTE | 2018-07-15 11:46 | CT ---
EXAM: CT of the lumbar spine without contrast History: Lower back pain and sciatica, pain down left leg. Comparison: CT abdomen pelvis 04/04/2018 Technique: Multiplanar CT images through the lumbar spine were obtained without the administration o f IV contrast Findings: Partially visualized right pleural effusion. Atherosclerotic vascular calcifications. Sm all right renal cyst again noted. Colonic diverticulosis. No acute fracture or subluxation of the lumbar spine. Osteopenia. Severe disc space narrowing at L3 -L4 with endplate sclerosis and osteophyte formation. Moderate to severe disc space narrowing at L2- L3. Mild to moderate disc space narrowing seen elsewhere. Patchy areas of sclerosis and lucency seen seen within the bilateral iliac bones and within the left side of the sacrum. T12-L1: No significant bony central canal stenosis or bony neural foraminal narrowing. L1-L2: No significant bony central canal stenosis or bony neural foraminal narrowing. L2-L3: Modest paracentral disc protrusion effacing anterior thecal sac with mild to moderate central canal stenosis. Moderate bilateral bony neural foraminal narrowing secondary to ligamentous and fac et hypertrophy. L3-L4: Moderate posterior disc osteophyte complex effacing the anterior thecal sac with moderate shahid tral canal stenosis. Severe bilateral bony neural foraminal narrowing secondary to ligamentous and f acet hypertrophy. L4-L5: Modest paracentral disc protrusion effacing anterior thecal sac with moderate central canal s tenosis. Severe bilateral bony neural foraminal narrowing secondary to ligamentous and facet hypertr ophy. L5-S1: No significant bony central canal stenosis. Severe left and moderate right bony neural myriam inal narrowing secondary to ligamentous and facet hypertrophy. There is a large osteophyte within th e left lateral recess which is probably compromising the left exiting nerve root. Impression: 1. No acute fracture or subluxation of the lumbar spine. 2. Patchy areas of sclerosis and lucency within the bilateral iliac bones and the left side of the s acrum suspicious for osseous metastasis. Recommend further evaluation with MRI. 3. Severe degenerative disc disease at L3-L4 and moderate to severe degenerative disc disease at L2- L3. 4. Degenerative changes with level by level analysis as detailed above. There is a large osteophyte within the left lateral recess at L5-S1 which is probably compromising the left exiting nerve root..
== END 2018-07-15 11:07 | disposition home or self-care (01) ==
LOC: RAD 11:06
PROVIDERS: ATTEND Emergency Medicine
DX: M54.40 Lumbago with sciatica, unspecified side (principal)

== ENCOUNTER 2018-07-31 09:12 | Outpatient (CLI) | END 2018-07-31 09:27 | disposition short-term general hospital (02) | LOC: AMBL 09:12 | PROVIDERS: ATTEND Family Medicine | DX: M25.552 Pain in left hip (principal); M25.551 Pain in right hip; M79.605 Pain in left leg; M79.604 Pain in right leg; R26.2 Difficulty in walking, not elsewhere classified; R20.0 Anesthesia of skin ==

== ENCOUNTER 2018-09-01 13:08 | Outpatient (CLI) | END 2018-09-01 13:09 | disposition home or self-care (01) | LOC: AMBL 13:08 | PROVIDERS: ATTEND Internal Medicine | DX: C34.90 Malignant neoplasm of unspecified part of unspecified bronchus or lung (principal); Z99.81 Dependence on supplemental oxygen; C79.49 Secondary malignant neoplasm of other parts of nervous system; C79.31 Secondary malignant neoplasm of brain; S24.104A Unspecified injury at T11-T12 level of thoracic spinal cord, initial encounter; S34.101A Unspecified injury to L1 level of lumbar spinal cord, initial encounter ==